=== PATIENT | female | born 1935 | race Caucasian/White ===

== ENCOUNTER 2017-04-03 17:22 | Outpatient (CLI) | payer BC, MEDICARE | END 2017-04-03 17:23 | disposition critical access hospital (66) | LOC: EMS 17:22 | PROVIDERS: ATTEND Surgery | DX: R53.1 Weakness (principal); R11.2 Nausea with vomiting, unspecified | CPT/HCPCS: A0425; A0427 ==

== ENCOUNTER 2017-04-03 17:37 | Inpatient (IN) | payer BC, MEDICARE ==
[2017-04-03] MEDS ORDERED: SODIUM CHLORIDE 0.9% 500 ML IV ONE (18:18)
[2017-04-03] MEDS ORDERED: SODIUM CHLORIDE 0.9% 1,000 ML IV ONE ×2 (18:22→19:38)
[2017-04-03 18:36] LABS: BASOPHILS % (AUTO) 0.3 %; EOSINOPHILS # (AUTO) 0.1 10^3/uL (0.0-0.7); EOSINOPHILS % (AUTO) 0.5 %; HCT - HEMATOCRIT 38.7 % (37.0-47.0); HGB - HEMOGLOBIN 13.2 g/dL (12.0-16.0); LYMPHOCYTES % (AUTO) 7.9 %; MEAN CORPUSCULAR HEMOGLOBIN 30.4 pg (27.0-31.0); MEAN CORPUSCULAR HGB CONC 34.1 g/dL (32.0-36.0); MEAN CORPUSCULAR VOLUME 89.2 fL (81.0-99.0); MEAN PLATELET VOLUME 7.9 fL (7.9-10.8); MONOCYTES # (AUTO) 0.9 10^3/uL (0.0-1.0); MONOCYTES % (AUTO) 7.8 %; NEUTROPHILS # (AUTO) 10.1 10^3/uL (1.5-6.6); NEUTROPHILS % (AUTO) 83.5 %; NUCLEATED RED BLOOD CELLS AUTO 0.1 /100WBC; RED BLOOD COUNT 4.34 10^6/uL (4.20-5.40); RED CELL DISTRIBUTION WIDTH 11.9 % (12.0-15.0); UNCORRECTED WHITE BLOOD COUNT 12.1 x10^3/uL; WHITE BLOOD COUNT 12.1 x10^3/uL (4.8-10.8)
[2017-04-03 18:56] LABS: ALBUMIN/GLOBULIN RATIO 1.2 (1.0-2.2); BILIRUBIN,TOTAL 0.9 mg/dL (0.2-1.0); CALCIUM 8.6 mg/dL (8.5-10.3); POTASSIUM 4.7 mmol/L (3.5-5.0); TOTAL PROTEIN 5.8 g/dL (6.7-8.2)
--- NOTE | 2017-04-03 19:07 | ED Physician Documentation ---
History of Present Illness - Stated complaint Stated Complaint: LETHARGIC - Chief complaint Chief Complaint: General - History obtained from History obtained from: Patient, Family (Daughter) - Additonal information Additional information: The patient is an 82-year-old female who arrives via ambulance complaining of generalized fatigue, and aching all over. She denies any specific complaints, but her daughter states that the patient has become increasingly lethargic over the past several days. She has a history of 60+ years of cigarette smoking and has a chronic cough with occasional sputum production. She denies chest pain, but does have occasional shortness of breath. She denies abdominal pain, but reports nausea with one episode of vomiting today. She denies dysuria. She denies history of similar symptoms in the past. She is visiting here from [place], having arrived 10 days ago. Review of Systems Constitutional: reports: Fatigue. denies: Fever Ears: denies: Tinnitus/ringing Nose: denies: Congestion Throat: denies: Sore throat Cardiac: denies: Chest pain / pressure, Palpitations Respiratory: reports: Dyspnea (Mild), Cough (Chronic smoker's cough.) GI: reports: Nausea, Vomiting (Once). denies: Abdominal Pain : denies: Dysuria Skin: denies: Rash Musculoskeletal: denies: Back pain, Extremity swelling Neurologic: reports: Generalized weakness. denies: Focal weakness, Numbness, Headache PD PAST MEDICAL HISTORY - Past Medical History Past Medical History: Yes Cardiovascular: Coronary artery disease Neuro: TIA - Past Surgical History Past Surgical History: Yes Cardiovascular: Coronary stent - Present Medications Home Medications: Ambulatory Orders Medication Instructions Recorded Confirmed Aspirin [Adult Low Dose Aspirin EC] 81 mg PO DAILY 04/03/17 04/03/17 Clopidogrel [Plavix] 75 mg PO DAILY 04/03/17 04/03/17 Hydrocodone/Acetaminophen [Vicodin 1 each PO Q6HR 04/03/17 04/03/17 5-300 mg Tablet] LORazepam [Ativan] 0.5 mg DAILY 04/03/17 04/03/17 Metoprolol Tartrate 25 mg PO BID 04/03/17 04/03/17 Ondansetron HCl [Zofran] 4 mg PO Q8HR 04/03/17 04/03/17 Pantoprazole [Protonix] 40 mg PO DAILY 04/03/17 04/03/17 Simvastatin 20 mg PO DAILY 04/03/17 04/03/17 Tiotropium Abiquiu [Spiriva] 18 mcg IH DAILY 04/03/17 04/03/17 Levothyroxine [Synthroid] 75 mcg PO QDAC 04/04/17 04/04/17 - Allergies Allergies/Adverse Reactions: Allergies Allergy/AdvReac Type Severity Reaction Status Date / Time Sulfa (Sulfonamide Allergy Unknown Verified 04/03/17 17:59 Antibiotics) - Social History Does the pt smoke?: Yes Smoking Status: Current every day smoker Does the pt drink ETOH?: No Does the pt have substance abuse?: No Additional Social History: Visiting from [place], staying with her daughter. PD ED PE NORMAL - Vitals Vital signs reviewed: Yes (Systolic hypertension.) - General General: Alert and oriented X 3, Well developed/nourished, Other (Appears fatigued, but responds to questions.) - HEENT HEENT: Atraumatic, PERRL, EOMI, Pharynx benign - Neck Neck: Supple, no meningeal sign, No adenopathy, No JVD - Cardiac Cardiac: RRR, No murmur - Respiratory Respiratory: No respiratory distress, Other (Faint expiratory wheezes bilaterally.) - Abdomen Abdomen: Soft, Non tender - Back Back: No CVA TTP - Derm Derm: No rash - Extremities Extremities: No edema, No calf tenderness / cord - Neuro Neuro: Alert and oriented X 3, No motor deficit, No sensory deficit, Other ( Generalized weakness, with no focal motor deficit detected.) Results - Vitals Vitals: Vital Signs - 24 hr 04/03/17 04/03/17 17:43 19:43 Temperature 36.7 C 36.7 C Heart Rate 84 93 Respiratory 18 14 Rate Blood Pressure 154/49 H O2 Saturation 94 99 Oxygen O2 Source Room air - EKG (time done) 18:51 Rate: Rate (enter#) (91) Rhythm: NSR, LAE QRS: Poor R wave progression Ischemia: Non specific changes Computer interpretation: Agree with computer - Labs Labs: Laboratory Tests 04/03/17 04/03/17 04/03/17 18:30 18:30 18:30 WBC 12.1 H RBC 4.34 Hgb 13.2 Hct 38.7 MCV 89.2 MCH 30.4 MCHC 34.1 RDW 11.9 L Plt Count 286 MPV 7.9 Neut # 10.1 H Lymph # 1.0 L [place] # 0.9 Eos # 0.1 Baso # 0.0 Absolute Nucleated RBC 0.01 Nucleated RBCs 0.1 Sodium 110 L* Potassium 4.7 Chloride 80 L* Carbon Dioxide 19 L Anion Gap 11.0 BUN 13 Creatinine 1.0 Estimated GFR (MDRD) 53 L Glucose 327 H Glycated Hemoglobin 10.5 H Estim Average Glucose 255 H Calcium 8.6 Total Bilirubin 0.9 AST 18 ALT 19 Alkaline Phosphatase 87 Total Protein 5.8 L Albumin 3.2 Globulin 2.6 Albumin/Globulin Ratio 1.2 Lipase 34 Urine Color Urine Clarity Urine pH Ur Specific Raymond Urine Protein Urine Glucose (UA) Urine Ketones Urine Occult Blood Urine Nitrite Urine Bilirubin Urine Urobilinogen Ur Leukocyte Esterase Urine RBC Urine WBC Ur Squamous Epith Cells Urine Bacteria Ur Microscopic Review Urine Culture Comments 04/03/17 04/03/17 19:50 20:30 WBC RBC Hgb Hct MCV MCH MCHC RDW Plt Count MPV Neut # Lymph # [place] # Eos # Baso # Absolute Nucleated RBC Nucleated RBCs Sodium 112 L* Potassium Chloride Carbon Dioxide Anion Gap BUN Creatinine Estimated GFR (MDRD) Glucose Glycated Hemoglobin Estim Average Glucose Calcium Total Bilirubin AST ALT Alkaline Phosphatase Total Protein Albumin Globulin Albumin/Globulin Ratio Lipase Urine Color YELLOW Urine Clarity HAZY Urine pH 6.0 Ur Specific Raymond 1.010 Urine Protein TRACE Urine Glucose (UA) >=1000 H Urine Ketones 15 H Urine Occult Blood LARGE H Urine Nitrite NEGATIVE Urine Bilirubin NEGATIVE Urine Urobilinogen 0.2 (NORMAL) Ur Leukocyte Esterase NEGATIVE Urine RBC 11-25 H Urine WBC >25 H Ur Squamous Epith Cells NONE SEEN Urine Bacteria Many H Ur Microscopic Review INDICATED Urine Culture Comments INDICATED - Rads (name of study) 2-view CXR Radiology: Prelim report reviewed, EMP read contemporaneously, See rad report ( COPD is evident. Bilateral central bronchial wall thickening could reflect bronchitis. No evidence for pneumonia. Normal heart size.) PD MEDICAL DECISION MAKING - ED course Complexity details: reviewed results, re-evaluated patient, considered differential, d/w patient, d/w family, d/w regional sales consultant ED course: The patient's presentation is significant for profound hyponatremia, with a sodium of 110. Her lethargy and confusion can well be attributed to this electrolyte abnormality. The underlying cause of her hyponatremia is uncertain. She does have a component of dehydration. Chest x-ray reveals evidence of COPD, with no acute pulmonary findings. Treatment in the emergency department included administration of normal saline 1 L IV. I discussed her condition with Dr. Narvaez who evaluated her in the emergency department and admitted her for further evaluation and treatment. Departure - Departure Disposition: [facility] DC/Xfer Clinical Impression: Hyponatremia, Dehydration Discharge Date/Time: 04/03/17 22:05
--- NOTE | 2017-04-03 19:54 | XRAY Preliminary Report ---
Exam: XR Chest 2 View PA/LAT IMPRESSION: 1. COPD is evident. 2. Bilateral central bronchial wall thickening could reflect bronchitis. 3. No evidence for pneumonia. 4. Normal heart size. [facility] SITE ID: [id number]
--- NOTE | 2017-04-03 19:56 | XRAY Report ---
EXAM: CHEST RADIOGRAPHY EXAM DATE: 04/03/2017 07:27 PM. CLINICAL HISTORY: Productive cough, dyspnea. COMPARISON: None. TECHNIQUE: 2 views. FINDINGS: Lungs/Pleura: Hyperlucent upper lungs compatible with COPD. Linear basilar opacities could reflect at electasis. No other focal airspace consolidation. Mild central bronchial wall thickening suggest bron chitis. No pleural effusion or pneumothorax. Mediastinum: Heart size is normal. Unremarkable mediastinal contour. Atheromatous calcification seen at the aortic arch. Other: Osteopenia is noted with kyphosis at the thoracolumbar junction, possibly from age-indetermina te compression fracture. IMPRESSION: 1. COPD is evident. 2. Bilateral central bronchial wall thickening could reflect bronchitis. 3. No evidence for pneumonia. 4. Normal heart size. [facility] Referring Provider Line: [phone] SITE ID: [id number]
[2017-04-03 20:23] LABS: BILIRUBIN,URINE NEGATIVE (NEGATIVE)
[2017-04-03] MEDS ORDERED: oxyCODONE 5 MG TABLET PO PRN (20:38)
[2017-04-03] MEDS ORDERED: ZOLPIDEM 5 MG TABLET PO PRN (20:38)
[2017-04-03] MEDS ORDERED: ONDANSETRON 4 MG/2 ML VIAL IVP PRN (20:38)
[2017-04-03] MEDS ORDERED: PROCHLORPERAZINE 10 MG/2 ML VIAL IVP PRN (20:38)
[2017-04-03] MEDS ORDERED: SODIUM CHLORIDE FLUSH 0.9% 10 ML SYRINGE IVP PRN (20:38)
[2017-04-03] MEDS ORDERED: ALBUTEROL NEB 2.5 MG/3 ML INH PRN (20:38)
[2017-04-03] MEDS ORDERED: ACETAMINOPHEN 325 MG TABLET PO PRN (20:38)
[2017-04-03 20:42] LABS: UA w/ MICROSCOPIC CHARGE YES
[2017-04-03] MEDS ORDERED: LORazepam 0.5 MG TABLET PO PRN (20:51)
[2017-04-03 20:59] LABS: WBC,URINE >25 /HPF (0-5)
[2017-04-03 21:00] LABS: UR CULTURE IF IND INDICATED
[2017-04-03] MEDS ORDERED: IOPAMIDOL-300 100 ML VIAL IVP ONE (21:46)
[2017-04-03 21:51] LABS: HEMOGLOBIN A1C 1.25 g/dL
[2017-04-03] MEDS ORDERED: SODIUM CHLORIDE FLUSH 0.9% 10 ML SYRINGE IVP ONE (22:21)
[2017-04-03] MEDS: SODIUM CHLORIDE FLUSH 0.9% 10 ML SYRINGE IVP SCH (22:23)
--- NOTE | 2017-04-03 22:53 | CT Preliminary Report ---
Exam: CT Chest W/ IMPRESSION: 1. Emphysema. 2. Nonspecific upper normal sized mediastinal lymph nodes measuring up to 1 cm. 3. Aortic ectasia and atherosclerosis. [facility] SITE ID: [id number]
[2017-04-03] MEDS: METOPROLOL TARTRATE 25 MG TABLET PO SCH (22:54)
[2017-04-03] MEDS: INSULIN ASPART 300 UNIT/3 ML PEN SUBQ SCH (22:54)
[2017-04-03] MEDS: cefTRIAXone 1 GM in SODIUM CHLORIDE 0.9% MINIBAG 100 ML IV SCH (22:55)
--- NOTE | 2017-04-03 22:55 | CT Report ---
EXAM: CT CHEST EXAM DATE: 04/03/2017 09:27 PM. CLINICAL HISTORY: Hyponatremia, weight loss, smoker. COMPARISONS: None. TECHNIQUE: Routine helical CT imaging was performed through the chest. IV contrast: Nonionic. Reconst ructions: Coronal and sagittal. In accordance with CT protocol optimization, one or more of the following dose reduction techniques w ere utilized for this exam: automated exposure control, adjustment of mA and/or KV based on patient s ize, or use of iterative reconstructive technique. FINDINGS: Lungs/Pleura: Emphysema. Mild bilateral atelectasis. No jaqui alveolar consolidation. No pleural effu miranda. No pneumothorax. Mediastinum: Heart size is normal. Coronary artery calcifications. Dilated ascending aorta measuring 3.7 cm. Moderate to severe atherosclerosis in the descending aorta. No aortic dissection. Nonspecific mediastinal lymph nodes measuring up to 17 m. Bones: Osteopenia. Degenerative changes in the spine. Mild scoliosis. Degenerative joint disease in t he shoulders. No aggressive lytic or blastic lesions identified. Visualized Abdomen: See separate abdomen and pelvis CT report. Other: None. IMPRESSION: 1. Emphysema. 2. Nonspecific upper normal sized mediastinal lymph nodes measuring up to 1 cm. 3. Aortic ectasia and atherosclerosis. [facility] Referring Provider Line: [phone] SITE ID: [id number]
[2017-04-03] MEDS: NICOTINE 21 MG PATCH TOP SCH (23:02)
--- NOTE | 2017-04-03 23:23 | CT Preliminary Report ---
Exam: CT Abdomen/Pelvis W/O IMPRESSION: 1. Solitary right kidney. 2. Colonic diverticula without evidence of diverticulitis. 3. Equivocal for mild wall thickening in the left hemicolon. This may simple represent nondistention. Low-grade colitis also possible. 4. Severe aortic atherosclerosis with infrarenal aneurysm measuring 3.8 x 3.6 cm. [facility] SITE ID: [id number]
--- NOTE | 2017-04-03 23:25 | CT Report ---
EXAM: CT ABDOMEN AND PELVIS EXAM DATE: 04/03/2017 09:51 PM. CLINICAL HISTORY: Hyponatremia and weight loss. Abdominal aortic abnormality noted on chest CT. COMPARISONS: CT chest, 04/03/2017. TECHNIQUE: Routine helical CT imaging was performed through the abdomen and pelvis. IV contrast: None . Enteric contrast: No. Reconstructions: Coronal and sagittal. In accordance with CT protocol optimization, one or more of the following dose reduction techniques w ere utilized for this exam: automated exposure control, adjustment of mA and/or KV based on patient s ize, or use of iterative reconstructive technique. FINDINGS: Lung Bases: Mild bibasilar atelectasis. Coronary artery calcifications. Liver: No focal lesion identified on this noncontrast examination. Gallbladder/Bile Ducts: Unremarkable. Spleen: Normal. Pancreas: Normal. Adrenal Glands: Normal. Kidneys: Excreted contrast in the right kidney from prior chest CT. 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 Peritoneal Cavity/Bowel: Colonic diverticula without evidence of diverticulitis. Equivocal for mild w all thickening in the left hemicolon. No bowel obstruction seen. No free air or free fluid. No lympha denopathy. Appendix is not seen. No evidence of appendicitis. Pelvic Organs: Uterus is not seen. Visualized pelvic organs are otherwise unremarkable. Vasculature: Tortuous severely atherosclerotic aorta. Infrarenal abdominal aortic aneurysm measuring 3.8 x 3.6 cm. Bones: Osteopenia. Degenerative changes and scoliosis in the spine. Spinal stenosis. Other: None. IMPRESSION: 1. Solitary right kidney. 2. Colonic diverticula without evidence of diverticulitis. 3. Equivocal for mild wall thickening in the left hemicolon. This may simple represent nondistention. Low-grade colitis also possible. 4. Severe aortic atherosclerosis with infrarenal aneurysm measuring 3.8 x 3.6 cm. [facility] Referring Provider Line: [phone] SITE ID: [id number]
--- NOTE | 2017-04-04 00:32 | HISTORY & PHYSICAL EXAMINATION ---
Chief Complaint - Chief Complaint Chief Complaint: Lethargy History of Present Illness - Admitted From Admitted From:: Emergency Department - History Obtained From Records Reviewed: Yes History obtained from: Patient and her daughter Exam Limitations: None - History of Present Illness HPI Comment/Other: Patient is an 82 year old female from [place], [place] who is here visiting her daughter with a past medical history of COPD, atrial fibrillation, CAD s/p stent , gastrointestinal stromal sarcoma of the stomach, hyperlipidemia, hypothyroidism, renal cell carcinoma s/p left nephrectomy, obesity, osteoarthritis, pre-diabetes, TIA, tobacco abuse and history of carotid thromboendarterectomy who presented to the emergency department with lethargy. According to the patients daughter the patient has been here on [facility] for 10 days now and prior to coming she was stressed out about coming but was otherwise in her normal state of health. She states that her mom says she may have been dehydrated before she came but did not complain of any diarrhea, vomiting or nausea. She stated her mom had a pneumonia earlier in the year but had been treated and was over it. She also stated that her mom gets recurrent urinary tract infections. Since coming to stay with her daughter the patients has been quite active as she was moving around the house with her walker. The daughter states that over the last 4 days however her mom has been less active. She states she complained of feeling fatigued and was spending most of her time in bed and would only get out of bed to have a cigarette. She seemed to be very weak. The patients daughter thought her mom was dehydrated and tried to get her to drink more water but the patient has had no appetite for the last several days and has been eating or drinking very little. She has not had any diarrhea nor has she vomited. The patient did tell her daughter that she felt as though she maybe getting another UTI. The daughter thought her mom would get better just with rest however today she states her mom was increasingly lethargic and confused. She states it was hard to arouse her and hard to get her to answer questions so she finally decided she needed to bring her into the ER. The patient did answer questions for the ER physician but was not able to give me much history as she was too lethargic. The history was mostly provided by the daughter. On presentation to the ER the patient was lethargic. Her vital signs were within normal limits. She did appear to be very dry. She did initially wake up to answer questions and did get up with the help of nurses to go to the bathroom. The patient however became more lethargic and less responsive when she was seen by me. The patients labs revealed that the patient had a sodium of 110 on presentation with a glucose of 327 therefore the corrected Na was closer to 115. She had a mild leukocytosis and her urine was positive for a UTI. She was given nearly 2L of IVF in the emergency department with Normal saline and her repeat Na was up to 112. I spoke with an life management teacher out of [facility] by the name of Dr Diaz who did not believe that she needed to be transferred even with such a low Na. She recommended starting the patient on normal saline at 75 ml/hr and her sodium would slowly correct at this rate. She said there was no need to place her on hypertonic slaine or desmopressin. The patient was admitted to our ICU. Review of Systems - Constitutional Constitutional: reports: Fatigue, Malaise, Weakness, Poor appetite. denies: Fever, Chills, Diaphoresis, Night sweats, Weight gain, Weight loss - Eyes Eyes: denies: Pain, Blurred vision, Vision loss, Dipolpia - Ears, Nose & Throat Ears, Nose & Throat: denies: Ear pain, Hearing loss, Hearing aids, Tinnitus, Vertigo, Nasal congestion, Sore throat, Hoarseness - Cardiovascular Cariovascular: reports: Irregular heart rate. denies: Palpitations, Chest pain , Edema, Lightheadedness, Syncope, Exertional dyspnea, Decr. exercise tolerance , Orthopnea - Respiratory Respiratory: denies: Cough, Sputum production, Wheezing, Orthopnea, SOB at rest , SOB with exertion, Apnea, Pleuritic pain - Gastrointestinal Gastrointestinal: reports: Poor appetite. denies: Abdominal pain, Abdominal distention, Constipation, Diarrhea, Change in bowel habits, Black stools, Bloody stools, Nausea, Vomiting, Reflux/heartburn, Bloating - Genitourinary Genitourinary: reports: Frequency. denies: Dysuria, Flank pain - Musculoskeletal Musculoskeletal: denies: Muscle pain, Back pain, Muscle aches, Stiffness, Limited range of motion, Muscle weakness, Joint pain, Joint swelling - Integumentary Integumentary: reports: Dryness. denies: Rash, Lesions - Neurological Neurological: reports: General weakness, Abnormal gait, Incoordination. denies : Focal weakness, Headache, Dizziness, Numbness - Psychiatric Psychiatric: reports: Other (Stressed). denies: Depression, Anxiety - Endocrine Endocrine: reports: Polyuria, Intolerance to cold. denies: Polydypsia, Polyphagia, Intolerance to heat - Hematologic/Lymphatic Hematologic/Lymphatic: denies: Anemia, Bruising, Petechiae, Lymphadenopathy History - Past Medical History Cardiovascular: reports: Hypertension, High cholesterol, Coronary artery disease (s/p stent), Atrial fibrillation, Other (Obesity) Respiratory: reports: COPD Neuro: reports: TIA Endocrine/Autoimmune: reports: Type 2 diabetes, HyPOthyroidism GI: reports: Chronic constipation, Diverticulitis, Other (Gastrointestinal Stromal Sarcoma of stomach) : reports: Incontinence, Other (Renal Cell Carcinoma s/p left nephrectomy ) HEENT: reports: None Psych: reports: None Musculoskeletal: reports: Osteoarthritis, Scoliosis Derm: reports: Other Other Past Medical History: 2 moles recently removed on her upper back by freezing them - Past Surgical History /SCAFFOLDER: reports: Other (Left nephrectomy ) Cardiovascular: reports: Coronary stent - Family & Social History Family History: Mother: (Dad of liver infection), Cancer (Brain Tumor), Father: , Sister: Diabetes, Type 2 Living arrangement: At home Living Situation: With family (Lives with daughter in [facility]) Social History Notes: Visiting from [place], staying with her daughter. Lives with her other daughter in [place], [place]. She uses a walker. Smoke 1.5 PPD since she was a teen so over 60 years. Does not drink or use any illicit drugs. - Substance History Use: Uses substance without health or social issues: Tobacco Tobacco Details: Cigarettes - POLST Patient has POLST: No POLST Status: Full Code Meds/Allgy - Home Medications Home Medications: Ambulatory Orders Medication Instructions Recorded Confirmed Aspirin [Adult Low Dose Aspirin EC] 81 mg PO DAILY 04/03/17 04/03/17 Clopidogrel [Plavix] 75 mg PO DAILY 04/03/17 04/03/17 Hydrocodone/Acetaminophen [Vicodin 1 each PO Q6HR 04/03/17 04/03/17 5-300 mg Tablet] LORazepam [Ativan] 0.5 mg DAILY 04/03/17 04/03/17 Metoprolol Tartrate 25 mg PO BID 04/03/17 04/03/17 Ondansetron HCl [Zofran] 4 mg PO Q8HR 04/03/17 04/03/17 Pantoprazole [Protonix] 40 mg PO DAILY 04/03/17 04/03/17 Simvastatin 20 mg PO DAILY 04/03/17 04/03/17 Tiotropium [place] [Spiriva] 18 mcg IH DAILY 04/03/17 04/03/17 Levothyroxine [Synthroid] 75 mcg PO QDAC 04/04/17 04/04/17 - Allergies Allergies/Adverse Reactions: Allergies Allergy/AdvReac Type Severity Reaction Status Date / Time Sulfa (Sulfonamide Allergy Unknown Verified 04/03/17 17:59 Antibiotics) Exam - Vital Signs Reviewed Vital Signs: Yes Vital Signs: Vital Signs x48h Temp Pulse Pulse Resp BP BP Pulse Ox 04/03/17 23:13 36.9 C 94 94 14 118/52 L 98 04/03/17 22:54 148/51 H 04/03/17 22:14 36.4 C L 101 H 26 H 151/53 H 96 04/03/17 21:56 36.4 C L 103 H 25 H 151/53 H 99 04/03/17 21:41 95 19 135/57 H 96 - Physical Exam General Appearance: positive: Lethargic (Difficult to arouse. Patient does not answer my questions but was following commands and responding earlier.) Eyes Bilateral: positive: Normal inspection, PERRL, EOMI, No lid inflammation, Conjunctivae nml, No scleral icterus ENT: positive: ENT inspection nml, Pharynx nml, Dry mucous membranes. negative : Purulent nasal drainage, Pharyngeal erythema, Oral lesions Neck: positive: Nml inspection, Thyroid nml, No JVD, Trachea midline. negative : Thyromegaly, Lymphadenopathy (R), Lymphadenopathy (L), Carotid bruit, Tracheal deviation Respiratory: positive: Chest non-tender, No respiratory distress, Wheezes (Mild scattered). negative: Rales, Rhonchi Cardiovascular: positive: No murmur, No gallop, Irregularly irregular Peripheral Pulses: positive: 2+ Abdomen: positive: Non-tender, No organomegaly, Nml bowel sounds, No distention. negative: Guarding, Rebound, Hepatomegaly Back: positive: Nml inspection. negative: CVA tenderness (R), CVA tenderness (L ) Skin: positive: No rash, Dry. negative: Cyanosis, Pallor Extremities: positive: Non-tender, Full ROM, Nml appearance, No pedal edema. negative: Joint swelling Neurologic/Psychiatric: positive: CN's nml (2-12), Motor nml, Sensation nml, Other (Ataxia, lethargic) Conclusion/Plan - Problem List (1) Hyponatremia Conclusion/Plan: Patient appears hypovolemic on presentation therefore this is likely hypovolemic hyponatremia Patients Gluc was elevated to over 300 on presentation therefore corrected Na is 114.8 Patient not having any diarrhea or vomiting No evidence of acute pulmonary process on CXR or CT chest but does show COPD which can lead to SIADH Patients Conchis is 20 and FeNa is less than 1 this does not go with either renal or extra renal losses Patient is not on any diuretics She does have hypothyroidism on synthroid Patient lethargic on presentation with ataxia Patient not on any medications that would cause hyponatremia Given that the patients symptoms have come on so gradually and are not severe despite such low levels of Na leads me to believe this is chronic hyponatremia Plan: Correct at slow rate of no more than 8-10 mmol/l per 24 hours as this appears to be chronic Per recommendations of Dr. Diaz (ICU) at [facility] in [place] we will place patient on 75 ml/hr of NS. Patient did receive nearly 2L of saline in the ED Check TSH Check AM Cortisol Monitor Na q [address] head to look for tumor if no other source found Free water restriction of 800ml (2) UTI (urinary tract infection) Conclusion/Plan: Patient has history of recurrent UTIs Appears to have new onset diabetes as she previously had pre-diabetes but A1C is now 10.5 which puts her at risk for UTI UA with greater than 25 WBCs and may bacteria, leukocytosis and patient told daughter she felt as though she might have a UTI Plan: IV ceftriaxone Awaiting urine cx Qualifiers: Urinary tract infection type: acute cystitis (3) Diabetes Conclusion/Plan: Previously patient was told she has pre-diabetes Patients BG elevated at over 300 on presentation Patient has HbA1C of 10.5 Patient has new diagnosis of diabetes This may have been contributing to dehydration secondary to polyuria and hyperglycemia Plan: Start lantus 10 units subQ daily and SS insulin DM diet DM teaching Monitor BG while hospitalized Qualifiers: Diabetes mellitus type: type 2 (4) Hypothyroidism Conclusion/Plan: Patient on synthroid at home Presented with hyponatremia which can be caused by hypothroidism Plan: Check TSH Continue synthorid home dose and adjust if needed (5) Aortic aneurysm Conclusion/Plan: Infra-renal aortic aneurysm measuring 3.8 x 3.6 cm Not ruptured Patient is a smoker Will need to be counselled on need to quit smoking Plan: Needs to follow up as outpatient for annual ultrasound to monitor size Qualifiers: Aortic location: abdominal aorta Presence of rupture: without rupture Qualified Code(s): I71.4 - Abdominal aortic aneurysm, without rupture (6) COPD (chronic obstructive pulmonary disease) Conclusion/Plan: Patient has COPD from years of smoking COPD can cause SIADH and hyponatremia but patient appears hypovolemic Stable no O2 requirement with minimal wheezing Plan: Supplemental O2 if needed Albuterol and ipratropium as needed Qualifiers: COPD type: emphysema (7) Hypertension Conclusion/Plan: BP is stable Continue home meds Monitor (8) Hyperlipidemia Conclusion/Plan: Stable Continue home statin (9) Tobacco abuse Conclusion/Plan: Patient continues to smoke 1.5 PPD despite CAD, TIA and atherosclerosis She now also has an aortic aneurysm Patient will be counselled on need to quit once more alert and awake Nicotine patch for now (10) Prophylactic use of low molecular weight heparin for venous thromboembolism Conclusion/Plan: Place on lovenox while hospitalized - Lab Results Lab results reviewed: Yes Fish Bones: 04/03/17 18:30 04/03/17 20:30 Other Lab Results: Laboratory Results WBC 12.1 x10^3/uL (4.8-10.8) H 04/03/17 18:30 RBC 4.34 10^6/uL (4.20-5.40) 04/03/17 18:30 Hgb 13.2 g/dL (12.0-16.0) 04/03/17 18:30 Hct 38.7 % (37.0-47.0) 04/03/17 18:30 MCV 89.2 fL (81.0-99.0) 04/03/17 18:30 MCH 30.4 pg (27.0-31.0) 04/03/17 18:30 MCHC 34.1 g/dL (32.0-36.0) 04/03/17 18:30 RDW 11.9 % (12.0-15.0) L 04/03/17 18:30 Plt Count 286 10^3/uL (130-450) 04/03/17 18:30 MPV 7.9 fL (7.9-10.8) 04/03/17 18:30 Neut # 10.1 10^3/uL (1.5-6.6) H 04/03/17 18:30 Lymph # 1.0 10^3/uL (1.5-3.5) L 04/03/17 18:30 Clay # 0.9 10^3/uL (0.0-1.0) 04/03/17 18:30 Eos # 0.1 10^3/uL (0.0-0.7) 04/03/17 18:30 Baso # 0.0 10^3/uL (0.0-0.1) 04/03/17 18:30 Absolute Nucleated RBC 0.01 x10^3/uL 04/03/17 18:30 Nucleated RBCs 0.1 /100WBC 04/03/17 18:30 Sodium 116 mmol/L (135-145) L* 04/04/17 01:00 Potassium 4.3 mmol/L (3.5-5.0) 04/04/17 01:00 Chloride 88 mmol/L (101-111) L 04/04/17 01:00 Carbon Dioxide 19 mmol/L (21-32) L 04/04/17 01:00 Anion Gap 9.0 (6-13) 04/04/17 01:00 BUN 12 mg/dL (6-20) 04/04/17 01:00 Creatinine 1.0 mg/dL (0.4-1.0) 04/04/17 01:00 Estimated GFR (MDRD) 53 (>89) L 04/04/17 01:00 Glucose 252 mg/dL (70-100) H 04/04/17 01:00 POC Whole Bld Glucose 309 mg/dL (70 - 100) H 04/03/17 22:23 Glycated Hemoglobin 10.5 % (4.6-6.2) H 04/03/17 18:30 Estim Average Glucose 255 (70-100) H 04/03/17 18:30 Calcium 8.1 mg/dL (8.5-10.3) L 04/04/17 01:00 Total Bilirubin 0.9 mg/dL (0.2-1.0) 04/03/17 18:30 AST 18 IU/L (10-42) 04/03/17 18:30 ALT 19 IU/L (10-60) 04/03/17 18:30 Alkaline Phosphatase 87 IU/L (42-121) 04/03/17 18:30 Total Protein 5.8 g/dL (6.7-8.2) L 04/03/17 18:30 Albumin 3.2 g/dL (3.2-5.5) 04/03/17 18:30 Globulin 2.6 g/dL (2.1-4.2) 04/03/17 18:30 Albumin/Globulin Ratio 1.2 (1.0-2.2) 04/03/17 18:30 Lipase 34 U/L (22-51) 04/03/17 18:30 Urine Color YELLOW 04/03/17 19:50 Urine Clarity HAZY (CLEAR) 04/03/17 19:50 Urine pH 6.0 PH (5.0-7.5) 04/03/17 19:50 Ur Specific [place] 1.010 (1.002-1.030) 04/03/17 19:50 Urine Protein TRACE mg/dL (NEGATIVE) 04/03/17 19:50 Urine Glucose (UA) >=1000 mg/dL (NEGATIVE) H 04/03/17 19:50 Urine Ketones 15 mg/dL (NEGATIVE) H 04/03/17 19:50 Urine Occult Blood LARGE (NEGATIVE) H 04/03/17 19:50 Urine Nitrite NEGATIVE (NEGATIVE) 04/03/17 19:50 Urine Bilirubin NEGATIVE (NEGATIVE) 04/03/17 19:50 Urine Urobilinogen 0.2 (NORMAL) E.U./dL (NORMAL) 04/03/17 19:50 Ur Leukocyte Esterase NEGATIVE (NEGATIVE) 04/03/17 19:50 Urine RBC 11-25 /HPF (0-5) H 04/03/17 19:50 Urine WBC >25 /HPF (0-5) H 04/03/17 19:50 Ur Squamous Epith Cells NONE SEEN (<= Few) 04/03/17 19:50 Urine Bacteria Many /HPF (None Seen) H 04/03/17 19:50 Ur Microscopic Review INDICATED 04/03/17 19:50 Urine Culture Comments INDICATED 04/03/17 19:50 Urine Creatinine 22.6 mg/dL 04/03/17 23:44 Urine Sodium 20.0 mmol/L 04/03/17 23:44 - Diagnostic Imaging Results Diagnostic Imaging Results: positive: Final report reviewed Diagnostic Imaging Results Comments: Chest X ray: 1. COPD evident 2. Bilateral central bronchial jwall thickening could reflect bronchitis 3. No evidence for pneumonia 4. Normal heart size CT chest: Emphysema Nonspecific upper normal sized mediastinal lymph nodes measuring up to 1 cm Aortic ectasia and atherosclerosis CT abd/pelvis: Solitary right kidney Colonic diverticula without evidence of diverticulitis Equivocal for mild wall thickening in the left hemicolon. This may simply represent nondistention low-grade colitis also possible. Severe aortic atherosclerosis with infrarenal aneurysm measuring 3.8 x 3.6 cm - EKG Results EKG Interpreted Independently: Yes EKG Findings: Arrhythmia Issues/Core Measures - Anticipated LOS Anticipated Stay Length: 2 or more midnights - DVT/VTE - Prophylaxis VTE/DVT Prophylaxis med ordered at admit?: Yes
[2017-04-04] MEDS: SODIUM CHLORIDE 0.9% 1,000 ML IV SCH ×3 (00:54→21:27)
[2017-04-04] MEDS: PHENAZOPYRIDINE 100 MG TABLET PO SCH ×4 (00:59→21:28)
[2017-04-04 01:20] LABS: CALCIUM 8.1 mg/dL (8.5-10.3); POTASSIUM 4.3 mmol/L (3.5-5.0)
[2017-04-04 05:53] LABS: BASOPHILS % (AUTO) 0.2 %; EOSINOPHILS # (AUTO) 0.1 10^3/uL (0.0-0.7); EOSINOPHILS % (AUTO) 0.5 %; HCT - HEMATOCRIT 35.1 % (37.0-47.0); HGB - HEMOGLOBIN 12.1 g/dL (12.0-16.0); LYMPHOCYTES # (AUTO) 1.9 10^3/uL (1.5-3.5); LYMPHOCYTES % (AUTO) 14.1 %; MEAN CORPUSCULAR HEMOGLOBIN 30.5 pg (27.0-31.0); MEAN CORPUSCULAR HGB CONC 34.4 g/dL (32.0-36.0); MEAN CORPUSCULAR VOLUME 88.7 fL (81.0-99.0); MEAN PLATELET VOLUME 7.6 fL (7.9-10.8); MONOCYTES # (AUTO) 0.9 10^3/uL (0.0-1.0); MONOCYTES % (AUTO) 7.1 %; NEUTROPHILS # (AUTO) 10.4 10^3/uL (1.5-6.6); NEUTROPHILS % (AUTO) 78.1 %; RED BLOOD COUNT 3.95 10^6/uL (4.20-5.40); UNCORRECTED WHITE BLOOD COUNT 13.3 x10^3/uL; WHITE BLOOD COUNT 13.3 x10^3/uL (4.8-10.8)
[2017-04-04] MEDS: SODIUM CHLORIDE FLUSH 0.9% 10 ML SYRINGE IVP SCH ×3 (05:57→21:29)
[2017-04-04 06:08] LABS: CALCIUM 7.9 mg/dL (8.5-10.3); CREATININE 0.9 mg/dL (0.4-1.0); PHOSPHORUS 3.5 mg/dL (2.5-4.6); POTASSIUM 4.3 mmol/L (3.5-5.0)
[2017-04-04] MEDS: LEVOTHYROXINE 75 MCG TABLET PO SCH (06:40)
[2017-04-04] MEDS: PANTOPRAZOLE 40 MG TABLET PO SCH (06:40)
[2017-04-04] MEDS: IPRATROPIUM 0.2 MG/ML NEB INH PRN ×2 (08:14→14:19)
[2017-04-04] MEDS: INSULIN ASPART 300 UNIT/3 ML PEN SUBQ SCH (08:27)
[2017-04-04] MEDS: ASPIRIN EC 81 MG TABLET PO SCH (08:27)
[2017-04-04] MEDS: CLOPIDOGREL 75 MG TABLET PO SCH (08:27)
[2017-04-04] MEDS: ENOXAPARIN 40 MG/0.4 ML SYRINGE SUBQ SCH (08:27)
[2017-04-04] MEDS: METOPROLOL TARTRATE 25 MG TABLET PO SCH ×2 (08:28→21:28)
[2017-04-04] MEDS: NICOTINE 21 MG PATCH TOP SCH (08:28)
[2017-04-04] MEDS ORDERED: NON FORMULARY MED (Simvastatin [Simvastatin] 20 MG) PO SCH (09:00)
[2017-04-04] MEDS ORDERED: INSULIN GLARGINE 300 UNIT/3 ML PEN SUBQ SCH (09:00)
[2017-04-04 09:31] LABS: CALCIUM 8.2 mg/dL (8.5-10.3); CREATININE 0.9 mg/dL (0.4-1.0); POTASSIUM 4.7 mmol/L (3.5-5.0)
[2017-04-04 09:44] LABS: CHOL/HDL RATIO 2.3 (<4.4); CHOLESTEROL 108 mg/dL; HDL CHOLESTEROL 47 mg/dL; LDL/HDL RATIO 0.9 (<4.4); TRIGLYCERIDES 84 mg/dL; VLDL CHOLESTEROL 17 mg/dL
[2017-04-04 09:49] LABS: SODIUM, URINE < 12.0 mmol/L
--- NOTE | 2017-04-04 11:20 | PROVIDER PROGRESS NOTE ---
Subjective - Subjective Pt reports feeling: Improved (Pt is less fatigued, eating and drinking without complaints. Daughter at bedside and confirms this. Pt admits to drinking "free water all the time and alot because she lives in [place]".) Objective - Vital Signs/Intake & Output Vital Signs: Vital Signs x48h Temp Pulse Pulse Resp BP BP Pulse Ox 04/04/17 11:00 82 20 117/51 L 96 04/04/17 09:56 81 24 128/56 L 98 04/04/17 08:47 92 17 128/50 L 92 04/04/17 08:28 122/49 L 04/04/17 08:15 98 26 H 04/04/17 07:51 37.0 C 92 19 135/67 H 97 04/04/17 06:00 90 15 115/41 L 94 04/04/17 05:00 88 23 128/45 L 95 04/04/17 04:37 37.3 C 93 17 97 04/04/17 04:00 88 15 115/36 L 95 Intake & Output: Intake & Output 04/01/17 04/02/17 04/03/17 04/04/17 23:59 23:59 23:59 23:59 Intake Total 0 1629 Output Total 1300 1065 Balance -1300 564 - Objective General Appearance: positive: No acute distress Respiratory: positive: No respiratory distress Cardiovascular: positive: Regular rate & rhythm Rectal: positive: Non-tender Skin: positive: Color nml, Warm, Dry Neurologic/Psychiatric: positive: Oriented x3 - Lab Results Fish Bones: 04/04/17 05:42 04/04/17 08:30 Other Labs: Lab Results x24hrs 04/04/17 04/04/17 04/04/17 Range/Units 09:17 08:30 08:30 WBC (4.8-10.8) x10^3/uL RBC (4.20-5.40) 10^6/uL Hgb (12.0-16.0) g/dL Hct (37.0-47.0) % MCV (81.0-99.0) fL MCH (27.0-31.0) pg MCHC (32.0-36.0) g/dL RDW (12.0-15.0) % Plt Count (130-450) 10^3/uL MPV (7.9-10.8) fL Neut # (1.5-6.6) 10^3/uL Lymph # (1.5-3.5) 10^3/uL [place] # (0.0-1.0) 10^3/uL Eos # (0.0-0.7) 10^3/uL Baso # (0.0-0.1) 10^3/uL Absolute Nucleated RBC x10^3/uL Nucleated RBCs /100WBC Sodium (135-145) mmol/L Potassium (3.5-5.0) mmol/L Chloride (101-111) mmol/L Carbon Dioxide (21-32) mmol/L Anion Gap (6-13) BUN (6-20) mg/dL Creatinine (0.4-1.0) mg/dL Estimated GFR (MDRD) (>89) Glucose (70-100) mg/dL POC Whole Bld Glucose (70 - 100) mg/dL Lactic Acid (0.5-2.2) mmol/L Calcium (8.5-10.3) mg/dL Phosphorus (2.5-4.6) mg/dL Magnesium (1.7-2.8) mg/dL Albumin (3.2-5.5) g/dL Triglycerides 84 ( - 149) mg/dL Cholesterol 108 ( - 199) mg/dL LDL Cholesterol, Calc 44 ( - 129) mg/dL VLDL Cholesterol 17 mg/dL HDL Cholesterol 47 L (60 - ) mg/dL LDL/HDL Ratio 0.9 (<4.4) Cholesterol/HDL Ratio 2.3 (<4.4) TSH (0.34-5.60) uIU/mL Cortisol PM Sample 26.4 ug/dL Urine Creatinine 105.2 mg/dL Urine Sodium < 12.0 mmol/L 04/04/17 04/04/17 04/04/17 Range/Units 08:30 07:52 05:42 WBC (4.8-10.8) x10^3/uL RBC (4.20-5.40) 10^6/uL Hgb (12.0-16.0) g/dL Hct (37.0-47.0) % MCV (81.0-99.0) fL MCH (27.0-31.0) pg MCHC (32.0-36.0) g/dL RDW (12.0-15.0) % Plt Count (130-450) 10^3/uL MPV (7.9-10.8) fL Neut # (1.5-6.6) 10^3/uL Lymph # (1.5-3.5) 10^3/uL [place] # (0.0-1.0) 10^3/uL Eos # (0.0-0.7) 10^3/uL Baso # (0.0-0.1) 10^3/uL Absolute Nucleated RBC x10^3/uL Nucleated RBCs /100WBC Sodium 116 L* (135-145) mmol/L Potassium 4.7 (3.5-5.0) mmol/L Chloride 89 L (101-111) mmol/L Carbon Dioxide 18 L (21-32) mmol/L Anion Gap 9.0 (6-13) BUN 11 (6-20) mg/dL Creatinine 0.9 (0.4-1.0) mg/dL Estimated GFR (MDRD) 60 L (>89) Glucose 238 H (70-100) mg/dL POC Whole Bld Glucose 232 H (70 - 100) mg/dL Lactic Acid (0.5-2.2) mmol/L Calcium 8.2 L (8.5-10.3) mg/dL Phosphorus (2.5-4.6) mg/dL Magnesium (1.7-2.8) mg/dL Albumin 2.9 L (3.2-5.5) g/dL Triglycerides ( - 149) mg/dL Cholesterol ( - 199) mg/dL LDL Cholesterol, Calc ( - 129) mg/dL VLDL Cholesterol mg/dL HDL Cholesterol (60 - ) mg/dL LDL/HDL Ratio (<4.4) Cholesterol/HDL Ratio (<4.4) TSH (0.34-5.60) uIU/mL Cortisol PM Sample ug/dL Urine Creatinine mg/dL Urine Sodium mmol/L 04/04/17 04/04/17 04/04/17 Range/Units 05:42 05:42 05:42 WBC (4.8-10.8) x10^3/uL RBC (4.20-5.40) 10^6/uL Hgb (12.0-16.0) g/dL Hct (37.0-47.0) % MCV (81.0-99.0) fL MCH (27.0-31.0) pg MCHC (32.0-36.0) g/dL RDW (12.0-15.0) % Plt Count (130-450) 10^3/uL MPV (7.9-10.8) fL Neut # (1.5-6.6) 10^3/uL Lymph # (1.5-3.5) 10^3/uL [place] # (0.0-1.0) 10^3/uL Eos # (0.0-0.7) 10^3/uL Baso # (0.0-0.1) 10^3/uL Absolute Nucleated RBC x10^3/uL Nucleated RBCs /100WBC Sodium 117 L* (135-145) mmol/L Potassium 4.3 (3.5-5.0) mmol/L Chloride 90 L (101-111) mmol/L Carbon Dioxide 19 L (21-32) mmol/L Anion Gap 8.0 (6-13) BUN 11 (6-20) mg/dL Creatinine 0.9 (0.4-1.0) mg/dL Estimated GFR (MDRD) 60 L (>89) Glucose 231 H (70-100) mg/dL POC Whole Bld Glucose (70 - 100) mg/dL Lactic Acid 0.7 (0.5-2.2) mmol/L Calcium 7.9 L (8.5-10.3) mg/dL Phosphorus 3.5 (2.5-4.6) mg/dL Magnesium 2.0 (1.7-2.8) mg/dL Albumin (3.2-5.5) g/dL Triglycerides ( - 149) mg/dL Cholesterol ( - 199) mg/dL LDL Cholesterol, Calc ( - 129) mg/dL VLDL Cholesterol mg/dL HDL Cholesterol (60 - ) mg/dL LDL/HDL Ratio (<4.4) Cholesterol/HDL Ratio (<4.4) TSH 1.02 (0.34-5.60) uIU/mL Cortisol PM Sample ug/dL Urine Creatinine mg/dL Urine Sodium mmol/L 04/04/17 04/04/17 04/03/17 Range/Units 05:42 01:00 23:44 WBC 13.3 H (4.8-10.8) x10^3/uL RBC 3.95 L (4.20-5.40) 10^6/uL Hgb 12.1 (12.0-16.0) g/dL Hct 35.1 L (37.0-47.0) % MCV 88.7 (81.0-99.0) fL MCH 30.5 (27.0-31.0) pg MCHC 34.4 (32.0-36.0) g/dL RDW 12.0 (12.0-15.0) % Plt Count 261 (130-450) 10^3/uL MPV 7.6 L (7.9-10.8) fL Neut # 10.4 H (1.5-6.6) 10^3/uL Lymph # 1.9 (1.5-3.5) 10^3/uL [place] # 0.9 (0.0-1.0) 10^3/uL Eos # 0.1 (0.0-0.7) 10^3/uL Baso # 0.0 (0.0-0.1) 10^3/uL Absolute Nucleated RBC 0.00 x10^3/uL Nucleated RBCs 0.0 /100WBC Sodium 116 L* (135-145) mmol/L Potassium 4.3 (3.5-5.0) mmol/L Chloride 88 L (101-111) mmol/L Carbon Dioxide 19 L (21-32) mmol/L Anion Gap 9.0 (6-13) BUN 12 (6-20) mg/dL Creatinine 1.0 (0.4-1.0) mg/dL Estimated GFR (MDRD) 53 L (>89) Glucose 252 H (70-100) mg/dL POC Whole Bld Glucose (70 - 100) mg/dL Lactic Acid (0.5-2.2) mmol/L Calcium 8.1 L (8.5-10.3) mg/dL Phosphorus (2.5-4.6) mg/dL Magnesium (1.7-2.8) mg/dL Albumin (3.2-5.5) g/dL Triglycerides ( - 149) mg/dL Cholesterol ( - 199) mg/dL LDL Cholesterol, Calc ( - 129) mg/dL VLDL Cholesterol mg/dL HDL Cholesterol (60 - ) mg/dL LDL/HDL Ratio (<4.4) Cholesterol/HDL Ratio (<4.4) TSH (0.34-5.60) uIU/mL Cortisol PM Sample ug/dL Urine Creatinine 22.6 mg/dL Urine Sodium 20.0 mmol/L 04/03/17 Range/Units 22:23 WBC (4.8-10.8) x10^3/uL RBC (4.20-5.40) 10^6/uL Hgb (12.0-16.0) g/dL Hct (37.0-47.0) % MCV (81.0-99.0) fL MCH (27.0-31.0) pg MCHC (32.0-36.0) g/dL RDW (12.0-15.0) % Plt Count (130-450) 10^3/uL MPV (7.9-10.8) fL Neut # (1.5-6.6) 10^3/uL Lymph # (1.5-3.5) 10^3/uL [place] # (0.0-1.0) 10^3/uL Eos # (0.0-0.7) 10^3/uL Baso # (0.0-0.1) 10^3/uL Absolute Nucleated RBC x10^3/uL Nucleated RBCs /100WBC Sodium (135-145) mmol/L Potassium (3.5-5.0) mmol/L Chloride (101-111) mmol/L Carbon Dioxide (21-32) mmol/L Anion Gap (6-13) BUN (6-20) mg/dL Creatinine (0.4-1.0) mg/dL Estimated GFR (MDRD) (>89) Glucose (70-100) mg/dL POC Whole Bld Glucose 309 H (70 - 100) mg/dL Lactic Acid (0.5-2.2) mmol/L Calcium (8.5-10.3) mg/dL Phosphorus (2.5-4.6) mg/dL Magnesium (1.7-2.8) mg/dL Albumin (3.2-5.5) g/dL Triglycerides ( - 149) mg/dL Cholesterol ( - 199) mg/dL LDL Cholesterol, Calc ( - 129) mg/dL VLDL Cholesterol mg/dL HDL Cholesterol (60 - ) mg/dL LDL/HDL Ratio (<4.4) Cholesterol/HDL Ratio (<4.4) TSH (0.34-5.60) uIU/mL Cortisol PM Sample ug/dL Urine Creatinine mg/dL Urine Sodium mmol/L Assessment/Plan - Problem List (1) Hyponatremia Impression: 1) Patient appeared hypovolemic on presentation therefore this is likely hypovolemic hyponatremia Patient was lethargic on presentation with ataxia. Today she is not OOB yet, but is not lethargic today. Symptoms came on gradually and are not severe despite such low levels of Na leads me to believe this is chronic hyponatremia, and patient admitted to always drinking free water liberally. Plan: Continue to correct sodium at slow rate Checked TSH: WNL Checked AM Cortisol: WNL Monitor Na q [address] head to look for tumor if no other source found Continue free water restriction of 800ml. Advised to drink sports drinks or Propel for hydration. (2) UTI (urinary tract infection) Conclusion/Plan: Patient has history of recurrent UTIs and is at a higher risk due to DM. Plan: Continue IV ceftriaxone Awaiting urine cx Qualifiers: Urinary tract infection type: acute cystitis (3) Diabetes Conclusion/Plan: Previously patient was told she has pre-diabetes. Now glu over 300 and HbA1C of 10.5 Patient has new diagnosis of diabetes, which I discussed with Pt and daughter at bedside. Plan: Start lantus 10 units subQ daily and SS insulin DM diet: ordered DM teaching: ordered Monitor BG while hospitalized Qualifiers: Diabetes mellitus type: type 2 (4) Hypothyroidism Conclusion/Plan: Patient on synthroid at home Plan: Checked TSH: level OK Continue synthorid home dose and adjust if needed (5) Aortic aneurysm Conclusion/Plan: Infra-renal aortic aneurysm measuring 3.8 x 3.6 cm Patient is a smoker. I counselled on need to quit smoking. Pt is unwilling and said she tried patches, gum, meds and qiting cold turkey already. Plan: Needs to follow up as outpatient to monitor size of AAA. Qualifiers: Aortic location: abdominal aorta Presence of rupture: without rupture Qualified Code(s): I71.4 - Abdominal aortic aneurysm, without rupture (6) COPD (chronic obstructive pulmonary disease) Conclusion/Plan: Patient has COPD from years of smoking. I started smoking cessation discussion with Pt and daughter at bedside. Plan: Albuterol and ipratropium and supplemental O2 as needed Qualifiers: COPD type: emphysema (7) Hypertension Conclusion/Plan: BP is stable Continue home meds and monitor VS (8) Hyperlipidemia Conclusion/Plan: Fasting lipid panel ordered. She needs aggressive LDL and Trig control, given DM. Continue home statin (9) Tobacco abuse Conclusion/Plan: Patient continues to smoke I began smoking cessation discussion with Pt and daughter at bedside. Nicotine patch for now (10) Prophylactic use of low molecular weight heparin for venous thromboembolism Conclusion/Plan: Place on lovenox while hospitalized
[2017-04-04] MEDS ORDERED: INSULIN ASPART 300 UNIT/3 ML PEN SUBQ SCH (11:44)
[2017-04-04] MEDS: INSU100I18 SUBQ SCH ×3 (12:11→21:28)
[2017-04-04 13:25] LABS: CALCIUM 7.8 mg/dL (8.5-10.3); POTASSIUM 4.1 mmol/L (3.5-5.0)
[2017-04-04 18:19] LABS: CALCIUM 7.9 mg/dL (8.5-10.3); CREATININE 0.9 mg/dL (0.4-1.0); POTASSIUM 4.1 mmol/L (3.5-5.0)
[2017-04-04] MEDS ORDERED: ATORVASTATIN 10 MG TABLET PO SCH (21:00)
[2017-04-04 21:22] LABS: CREATININE 0.9 mg/dL (0.4-1.0); POTASSIUM 3.9 mmol/L (3.5-5.0)
[2017-04-04] MEDS: cefTRIAXone 1 GM in SODIUM CHLORIDE 0.9% MINIBAG 100 ML IV SCH (21:27)
[2017-04-05 01:17] LABS: CALCIUM 7.8 mg/dL (8.5-10.3); CREATININE 0.9 mg/dL (0.4-1.0)
[2017-04-05] MEDS: IPRATROPIUM 0.2 MG/ML NEB INH PRN (05:04)
[2017-04-05 05:17] LABS: BASOPHILS # (AUTO) 0.1 10^3/uL (0.0-0.1); BASOPHILS % (AUTO) 0.6 %; EOSINOPHILS # (AUTO) 0.1 10^3/uL (0.0-0.7); EOSINOPHILS % (AUTO) 1.3 %; HCT - HEMATOCRIT 33.3 % (37.0-47.0); HGB - HEMOGLOBIN 11.5 g/dL (12.0-16.0); LYMPHOCYTES # (AUTO) 1.9 10^3/uL (1.5-3.5); LYMPHOCYTES % (AUTO) 23.6 %; MEAN CORPUSCULAR HEMOGLOBIN 30.9 pg (27.0-31.0); MEAN CORPUSCULAR HGB CONC 34.4 g/dL (32.0-36.0); MEAN CORPUSCULAR VOLUME 89.7 fL (81.0-99.0); MEAN PLATELET VOLUME 8.2 fL (7.9-10.8); MONOCYTES # (AUTO) 0.7 10^3/uL (0.0-1.0); MONOCYTES % (AUTO) 8.6 %; NEUTROPHILS # (AUTO) 5.2 10^3/uL (1.5-6.6); NEUTROPHILS % (AUTO) 65.9 %; RED BLOOD COUNT 3.72 10^6/uL (4.20-5.40); RED CELL DISTRIBUTION WIDTH 12.1 % (12.0-15.0); UNCORRECTED WHITE BLOOD COUNT 7.9 x10^3/uL; WHITE BLOOD COUNT 7.9 x10^3/uL (4.8-10.8)
[2017-04-05 05:31] LABS: CREATININE 0.9 mg/dL (0.4-1.0); MAGNESIUM 1.7 mg/dL (1.7-2.8); PHOSPHORUS 2.9 mg/dL (2.5-4.6); POTASSIUM 3.9 mmol/L (3.5-5.0)
[2017-04-05] MEDS: PANTOPRAZOLE 40 MG TABLET PO SCH (06:24)
[2017-04-05] MEDS: LEVOTHYROXINE 75 MCG TABLET PO SCH (06:24)
[2017-04-05] MEDS: PHENAZOPYRIDINE 100 MG TABLET PO SCH (06:24)
[2017-04-05] MEDS: SODIUM CHLORIDE FLUSH 0.9% 10 ML SYRINGE IVP SCH (06:24)
[2017-04-05] MEDS ORDERED: MAGNESIUM OXIDE 400 MG TABLET PO SCH (08:00)
[2017-04-05] MEDS: INSU100I18 SUBQ SCH ×2 (08:32→12:00)
[2017-04-05] MEDS: ASPIRIN EC 81 MG TABLET PO SCH (08:40)
[2017-04-05] MEDS: CLOPIDOGREL 75 MG TABLET PO SCH (08:40)
[2017-04-05] MEDS: METOPROLOL TARTRATE 25 MG TABLET PO SCH (08:40)
[2017-04-05] MEDS: NICOTINE 21 MG PATCH TOP SCH (08:41)
[2017-04-05] MEDS: ENOXAPARIN 40 MG/0.4 ML SYRINGE SUBQ SCH (08:41)
[2017-04-05 09:47] LABS: CREATININE 0.9 mg/dL (0.4-1.0)
--- NOTE | 2017-04-05 10:49 | Discharge Plan ---
Discharge Plan Disposition: Home, Self Care Condition: Fair Prescriptions: Blood-Glucose Meter [Glucometer] 1 each MC TID #1 each Blood Sugar Diagnostic [Glucometer Strips] 1 each MC TID #90 strip Cephalexin [Keflex] 500 mg PO BID #14 capsule Metformin HCl [Metformin HCl ER] 500 mg PO BID #60 tab.er.24 Nicotine 21 mg Patch [Nicoderm] 1 each TOP Q24H #30 patch Diet: Diabetic Activity Restrictions: No Restrictions Shower Restrictions: No Driving Restrictions: No Weight Bearing: Full Weight Instruction Topics: Diabetes Resources, Blood Sugar Check, Diabetes Carbs, Diabetes Keep Feet Healthy, Hypoglycemia, Hyperglycemia, Diabetes Healthy Meals No Smoking: If you smoke, Please STOP! Call for help.
[2017-04-05] MEDS ORDERED: NYSTATIN POWDER 15 GM TOP ONE (11:07)
[2017-04-05 12:52] VITALS: BP 136/52
[2017-04-05] MEDS ORDERED: INSULIN ASPART 300 UNIT/3 ML PEN SUBQ SCH (17:00)
[2017-04-05 17:07] LABS: HEMOGLOBIN A1C 1.04 g/dL
--- NOTE | 2017-04-06 07:05 | DISCHARGE SUMMARY ---
DATE OF ADMISSION: 04/03/2017 DATE OF DISCHARGE: 04/05/2017 ADMITTING DIAGNOSES: 1. Lethargy. 2. Diabetes out of control. New diagnosis. 3. Dehydration. 4. Urinary tract infection. This is an 82-year-old white female who lives in [place], but is living here for approximately 2 month s over the summer with her daughter. The patient has a history of chronic obstructive pulmonary disea se, atrial fibrillation, coronary artery disease with remote stenting, stromal sarcoma of the stomach , hyperlipidemia, renal cell carcinoma of the kidney with left nephrectomy, osteoarthritis, tobacco a buse, peripheral vascular disease with carotid endarterectomy, and a history of prediabetes. The patient presented with a 2 week history of weakness, poor p.o. intake, lethargy, spending most of her time in bed for approximately 5 days, and over the last 2 days complained of dysuria which were her typical urinary tract infection symptoms. The patient was brought to the emergency room by the shelley guajardo. She was so lethargic that the daughter gave all the answers. The patient was found to have a urinary tract infection and a glucose of 327 on presentation and a sodium of 110 (corrected sodium 11 4), along with dehydration. ALLERGIES: SULFA. Medications before admission were: 1. Baby aspirin. 2. Plavix. 3. Vicodin p.r.n. 4. Ativan. 5. Metoprolol tartrate 25 b.i.d. 6. Zofran. 7. Protonix. 8. Simvastatin. 9. Spiriva. 10. Synthroid. She is a 1-1/2 pack per day smoker and denies any alcohol use. Physical exam on admission showed obtundation, blood pressure of 140/80, heart rate of 94 to 103, oxy gen saturation 98% on room air and afebrile. She had dry mucous membranes, no JVD, diminished breath sounds diffusely consistent with chronic obstructive pulmonary disease, no cardiac murmur, no leg yadira ma. Cranial nerves 2 through 12 grossly intact. HOSPITAL COURSE AND PROBLEM LIST: 1. Hyponatremia. This was felt to be due to elevated glucose, and therefore, the corrected sodium was 114 which is still low. She had a urine sodium of 20. She was felt to have chronic hyponatremia prob ably on the basis of elevated glucose, poor p.o. intake for nearly 2 weeks, and admitting to drinking a lot of "free water." The patient had her sodium corrected with IV saline and restriction of free w ater. Her TSH was normal and morning cortisol level was normal. She was also advised to avoid free wa ter intake. 2. Urinary tract infection. The patient is at higher risk of this with her prediabetes history and no w full diabetes. Her HbA1c came back at 10.5. The patient was treated for a urinary tract infection w ith 3 days of IV ceftriaxone and the plan was to send her home for an additional 7 days on Keflex 500 mg p.o. b.i.d. 3. Diabetes. The patient has now become a full diabetic with a glucose over 300 on presentation and a n HbA1c of 10.5. During this admission she was started on sliding scale insulin and received diabetic teaching aggressively which she was very supportive of. She was discharged home on metformin 500 mg p.o. b.i.d., a Glucometer and glucose strips and plan to [facility] before flying home to [place]. 4. Hypothyroidism. The patient was continued on her Synthroid dose. 5. Chronic obstructive pulmonary disease with smoking history. The patient had a Nicoderm patch here and initially stated that she had no interest in quitting smoking, but on the day of discharge was in terested in this and did ask to continue the Nicoderm patch with a titrating protocol. She was never in need of supplemental oxygen or inhalers during this admission. 6. Hypertension. This was under control on her current medications. 7. Hyperlipidemia. Because of her diabetes, the LDL control should now be below 100 and her medicatio ns were continued for managing this. Significant results during this admission included a chest x-ray showing chronic obstructive pulmonar y disease, CT of the chest showing emphysema and nonspecific mediastinal lymph nodes measuring 1 cm a nd aortic ectasia with mural atherosclerosis, and a CT of the abdomen showing a solitary right kidney , colonic diverticula without diverticulitis, and severe aortic atherosclerosis with an infrarenal ao rtic aneurysm measuring 3.8 x 3.6 cm. The patient was discharged in fair condition and was advised to followup with her primary care provid er after returning home to [place]. JOB #: [id number] EXT JOB #:[id number]
== END 2017-04-05 16:45 | disposition home or self-care (01) | DRG 641 ==
LOC: ED 17:37 → ICU 20:38
PROVIDERS: ADMIT Internal Medicine; ATTEND Internal Medicine
DX: E87.1 Hypo-osmolality and hyponatremia (principal); N39.0 Urinary tract infection, site not specified; E11.65 Type 2 diabetes mellitus with hyperglycemia; E86.0 Dehydration; J43.9 Emphysema, unspecified; Z86.73 Personal history of transient ischemic attack (TIA), and cerebral infarction without residual deficits; I10 Essential (primary) hypertension; E78.5 Hyperlipidemia, unspecified; I48.91 Unspecified atrial fibrillation; I25.10 Atherosclerotic heart disease of native coronary artery without angina pectoris; I73.9 Peripheral vascular disease, unspecified; F17.210 Nicotine dependence, cigarettes, uncomplicated; I71.4 Abdominal aortic aneurysm, without rupture; E03.9 Hypothyroidism, unspecified; M19.90 Unspecified osteoarthritis, unspecified site; Z95.5 Presence of coronary angioplasty implant and graft; Z90.5 Acquired absence of kidney; Z79.82 Long term (current) use of aspirin; Z79.02 Long term (current) use of antithrombotics/antiplatelets; Z79.899 Other long term (current) drug therapy; Z79.4 Long term (current) use of insulin; Z85.528 Personal history of other malignant neoplasm of kidney; Z87.19 Personal history of other diseases of the digestive system
CPT/HCPCS: 36415; 51701; 71020; 71260; 74176; 80048; 80053; 80061; 81001; 81003; 82040; 82533; 82570; 83036; 83605; 83690; 83735; 83930; 83935; 84100; 84295; 84300; 84443; 85025; 87086; 87150; 93005; 94640; 96360; 99284; 99285

== ENCOUNTER 2017-04-08 18:34 | Outpatient (CLI) | payer MEDICARE | END 2017-04-08 18:35 | disposition critical access hospital (66) | LOC: EMS 18:34 | PROVIDERS: ATTEND Surgery | DX: R41.82 Altered mental status, unspecified (principal) | CPT/HCPCS: A0425; A0429 ==

== ENCOUNTER 2017-04-08 18:47 | Inpatient (IN) | payer MEDICARE ==
[2017-04-08] MEDS ORDERED: SODIUM CHLORIDE 0.9% 1,000 ML IV ONE ×2 (18:54→19:46)
--- NOTE | 2017-04-08 18:56 | ED Physician Documentation ---
History of Present Illness - Stated complaint Stated Complaint: AMS - History obtained from History obtained from: Family, Other (review of recent medical records) - History of Present Illness Timing: Other (This is an 82-year-old woman who is visiting from [place]. She was admitted here on the first of this month and discharged on the third. She had profound hyponatremia and new onset diabetes which is being treated with oral medications. Also UTI on Keflex. She was doing well after her discharge until today and she had progressive altered level of consciousness in the last 4 hours or so. Blood sugar and route was 290. 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 (Left nephrectomy ) Cardiovascular: Coronary stent - Present Medications Home Medications: Ambulatory Orders Medication Instructions Recorded Confirmed Aspirin [Adult Low Dose Aspirin EC] 81 mg PO DAILY 04/03/17 04/08/17 Clopidogrel [Plavix] 75 mg PO DAILY 04/03/17 04/08/17 Hydrocodone/Acetaminophen [Vicodin 1 each PO Q6HR 04/03/17 04/08/17 5-300 mg Tablet] LORazepam [Ativan] 0.5 mg DAILY 04/03/17 04/08/17 Metoprolol Tartrate 25 mg PO BID 04/03/17 04/08/17 Ondansetron HCl [Zofran] 4 mg PO Q8HR 04/03/17 04/08/17 Pantoprazole [Protonix] 40 mg PO DAILY 04/03/17 04/08/17 Simvastatin 20 mg PO DAILY 04/03/17 04/08/17 Tiotropium [place] [Spiriva] 18 mcg IH DAILY 04/03/17 04/08/17 Levothyroxine [Synthroid] 75 mcg PO QDAC 04/04/17 04/08/17 Blood Sugar Diagnostic [Glucometer 1 each MC TID #90 strip 04/05/17 04/08/17 Strips] Blood-Glucose Meter [Glucometer] 1 each MC TID #1 each 04/05/17 04/08/17 Cephalexin [Keflex] 500 mg PO BID #14 capsule 04/05/17 04/08/17 Metformin HCl [Metformin HCl ER] 500 mg PO BID #60 tab.er.24 04/05/17 04/08/17 Nicotine 21 mg Patch [Nicoderm] 1 each TOP Q24H #30 patch 04/05/17 04/08/17 - Allergies Allergies/Adverse Reactions: Allergies Allergy/AdvReac Type Severity Reaction Status Date / Time adhesive tape Allergy Rash Verified 04/08/17 18:56 Sulfa (Sulfonamide Allergy Unknown Verified 04/08/17 18:56 Antibiotics) - Social History Does the pt smoke?: Yes Smoking Status: Current every day smoker Does the pt drink ETOH?: No Does the pt have substance abuse?: No - POLST Patient has POLST: No POLST Status: Full Code PD ED PE NORMAL - Vitals Vital signs reviewed: Yes - General General: Other (She slowly makes eye contact and has her eyes open but is pretty much nonverbal for me. That said she does follow simple commands and moves all extremities on command. She opens her mouth on command and takes deep breaths on command.) - HEENT HEENT: PERRL, EOMI, Other (Dry mucous membranes) - Neck Neck: Supple, no meningeal sign, No bony TTP - Cardiac Cardiac: No murmur, Other (Tachycardia) - Respiratory Respiratory: No respiratory distress, Clear bilaterally - Abdomen Abdomen: Soft, Non tender - Derm Derm: Normal color, Warm and dry, No rash - Extremities Extremities: No edema, No calf tenderness / cord - Neuro Neuro: No motor deficit, No sensory deficit Results - Vitals Vitals: Vital Signs - 24 hr 04/08/17 04/08/17 04/08/17 18:52 19:26 20:26 Temperature 36.6 C Heart Rate 100 95 90 Respiratory 16 16 18 Rate Blood Pressure 157/70 H 152/64 H 174/63 H O2 Saturation 98 97 97 04/08/17 20:39 Temperature Heart Rate 87 Respiratory 16 Rate Blood Pressure 153/48 H O2 Saturation 98 Oxygen O2 Source Room air - EKG (time done) 1906 Rate: Rate (enter#) (96) Rhythm: NSR Intervals: Normal DE, Other (LPFB) Ischemia: Non specific changes. No: ST elevation c/w ischemia Computer interpretation: Agree with computer - Labs Labs: Laboratory Tests 04/08/17 04/08/17 04/08/17 19:21 19:21 19:21 WBC 6.1 RBC 4.14 L Hgb 12.5 Hct 37.8 MCV 91.4 MCH 30.1 MCHC 32.9 RDW 12.3 Plt Count 269 MPV 7.4 L Neut # 2.9 Lymph # 2.3 [place] # 0.6 Eos # 0.2 Baso # 0.1 Absolute Nucleated RBC 0.00 Nucleated RBCs 0.0 Sodium 127 L Potassium 4.0 Chloride 95 L Carbon Dioxide 20 L Anion Gap 12.0 BUN 10 Creatinine 0.9 Estimated GFR (MDRD) 60 L Glucose 294 H Lactic Acid Calcium 8.8 Magnesium 1.3 L Total Bilirubin 0.6 AST 16 ALT 17 Alkaline Phosphatase 82 Total Creatine Kinase 18 L CK-MB (CK-2) 1.3 Troponin I < 0.04 Total Protein 6.0 L Albumin 3.3 Globulin 2.7 Albumin/Globulin Ratio 1.2 Lipase 26 Urine Color Urine Clarity Urine pH Ur Specific Axis Urine Protein Urine Glucose (UA) Urine Ketones Urine Occult Blood Urine Nitrite Urine Bilirubin Urine Urobilinogen Ur Leukocyte Esterase Ur Microscopic Review Urine Culture Comments Ethyl Alcohol < 5.0 04/08/17 04/08/17 19:23 20:19 WBC RBC Hgb Hct MCV MCH MCHC RDW Plt Count MPV Neut # Lymph # [place] # Eos # Baso # Absolute Nucleated RBC Nucleated RBCs Sodium Potassium Chloride Carbon Dioxide Anion Gap BUN Creatinine Estimated GFR (MDRD) Glucose Lactic Acid 0.9 Calcium Magnesium Total Bilirubin AST ALT Alkaline Phosphatase Total Creatine Kinase CK-MB (CK-2) Troponin I Total Protein Albumin Globulin Albumin/Globulin Ratio Lipase Urine Color YELLOW Urine Clarity HAZY Urine pH 6.5 Ur Specific Axis 1.010 Urine Protein NEGATIVE Urine Glucose (UA) >=1000 H Urine Ketones 40 H Urine Occult Blood LARGE H Urine Nitrite NEGATIVE Urine Bilirubin NEGATIVE Urine Urobilinogen 0.2 (NORMAL) Ur Leukocyte Esterase NEGATIVE Ur Microscopic Review INDICATED Urine Culture Comments Not Reportable Ethyl Alcohol PD MEDICAL DECISION MAKING - ED course ED course: 82-year-old woman with recent admission for UTI and hyponatremia comes back with acutely altered mental status of unclear etiology. No clinical evidence of stroke. She does have modest hypomagnesemia which is repleted IV, her hyponatremia is improved. At 8:33 PM she did have a 9 beat run of V. tach. Unclear if it was pulseless, but she was still conscious shortly after at bedside. I spoke with Dr. Pollack the hospitalist for admission at 2041. Departure - Departure Disposition: 66 [facility] DC/Xfer Clinical Impression: Hyponatremia, Dehydration, Ventricular tachycardia Altered mental status Qualifiers: Altered mental status type: delirium Qualified Code(s): R41.0 - Disorientation , unspecified Condition: Stable
[2017-04-08 19:32] LABS: BASOPHILS # (AUTO) 0.1 10^3/uL (0.0-0.1); BASOPHILS % (AUTO) 0.9 %; EOSINOPHILS # (AUTO) 0.2 10^3/uL (0.0-0.7); EOSINOPHILS % (AUTO) 3.7 %; HCT - HEMATOCRIT 37.8 % (37.0-47.0); HGB - HEMOGLOBIN 12.5 g/dL (12.0-16.0); LYMPHOCYTES # (AUTO) 2.3 10^3/uL (1.5-3.5); LYMPHOCYTES % (AUTO) 37.3 %; MEAN CORPUSCULAR HEMOGLOBIN 30.1 pg (27.0-31.0); MEAN CORPUSCULAR HGB CONC 32.9 g/dL (32.0-36.0); MEAN CORPUSCULAR VOLUME 91.4 fL (81.0-99.0); MEAN PLATELET VOLUME 7.4 fL (7.9-10.8); MONOCYTES # (AUTO) 0.6 10^3/uL (0.0-1.0); MONOCYTES % (AUTO) 10.6 %; NEUTROPHILS # (AUTO) 2.9 10^3/uL (1.5-6.6); NEUTROPHILS % (AUTO) 47.5 %; RED BLOOD COUNT 4.14 10^6/uL (4.20-5.40); RED CELL DISTRIBUTION WIDTH 12.3 % (12.0-15.0); UNCORRECTED WHITE BLOOD COUNT 6.1 x10^3/uL; WHITE BLOOD COUNT 6.1 x10^3/uL (4.8-10.8)
[2017-04-08 19:45] LABS: ALBUMIN/GLOBULIN RATIO 1.2 (1.0-2.2); BILIRUBIN,TOTAL 0.6 mg/dL (0.2-1.0); BUN - BLOOD UREA NITROGEN 10 mg/dL (6-20); CALCIUM 8.8 mg/dL (8.5-10.3); CARBON DIOXIDE - CO2 20 mmol/L (21-32); CHLORIDE 95 mmol/L (101-111); CREATININE 0.9 mg/dL (0.4-1.0); GFR - MDRD 60 (>89); GLUCOSE 294 mg/dL (70-100); LIPASE 26 U/L (22-51); MAGNESIUM 1.3 mg/dL (1.7-2.8); SODIUM 127 mmol/L (135-145)
[2017-04-08] MEDS ORDERED: MAGNESIUM SULFATE 2 GRAM 50 ML IV ONE ×2 (19:46→19:53)
[2017-04-08 19:50] LABS: CREATINE KINASE MB 1.3 ng/mL (0.6-6.3)
[2017-04-08 19:54] LABS: TROPONIN I < 0.04 ng/mL (<0.49)
--- NOTE | 2017-04-08 20:04 | CT Preliminary Report ---
Exam: CT Head W/O IMPRESSION: 1. Mild generalized atrophy and chronic microvascular angiopathy. 2. No acute intracranial abnormality. [facility] SITE ID: [id number]
--- NOTE | 2017-04-08 20:06 | CT Report ---
EXAM: CT HEAD EXAM DATE: 04/08/2017 07:47 PM. CLINICAL HISTORY: Altered mental status. Gradual onset of weakness and decline. Reason UTI. COMPARISON: None. TECHNIQUE: Multiaxial CT images were obtained from the foramen magnum to the vertex. IV contrast: Non e. Reformats: Coronal. In accordance with CT protocol optimization, one or more of the following dose reduction techniques w ere utilized for this exam: automated exposure control, adjustment of mA and/or KV based on patient s ize, or use of iterative reconstructive technique. FINDINGS: Parenchyma: Mild patchy white matter hypoattenuation, compatible with chronic small vessel ischemic c hange. No intraparenchymal hemorrhage, mass effect, or CT findings of evolving acute/subacute infarct . Nelson-white differentiation is distinct. Extraaxial Spaces: Mild diffuse sulcal prominence, compatible with generalized atrophy. No subdural o r epidural collections identified. Ventricles: Normal in size and position. Sinuses: Imaged paranasal sinuses, orbits, and mastoids show no significant abnormality. Bones: No evidence of fracture or calvarial defect. Other: Atherosclerotic calcifications of the bilateral cavernous internal carotid arteries. IMPRESSION: 1. Mild generalized atrophy and chronic microvascular angiopathy. 2. No acute intracranial abnormality. [facility] Referring Provider Line: [phone] SITE ID: [id number]
--- NOTE | 2017-04-08 20:06 | XRAY Preliminary Report ---
Exam: XR Chest 1 View IMPRESSION: No acute cardiopulmonary abnormality. [facility] SITE ID: [id number]
--- NOTE | 2017-04-08 20:08 | XRAY Report ---
EXAM: CHEST RADIOGRAPHY EXAM DATE: 04/08/2017 07:49 PM. CLINICAL HISTORY: Altered mental status. Gradual onset of weakness and decline. COMPARISON: CT chest and chest radiograph 09/22/2016. TECHNIQUE: 1 view. FINDINGS: Lungs/Pleura: Unchanged mild pleural thickening. No focal consolidation or evidence of edema. No pleu ral effusion or pneumothorax. Mediastinum: Normal cardiomediastinal contour. Atherosclerotic calcifications within the aorta. Other: Surgical clips in the upper abdomen. IMPRESSION: No acute cardiopulmonary abnormality. [facility] Referring Provider Line: [phone] SITE ID: [id number]
[2017-04-08 20:31] LABS: BILIRUBIN,URINE NEGATIVE (NEGATIVE); PH,URINE 6.5 PH (5.0-7.5)
[2017-04-08 20:37] LABS: UA w/ MICROSCOPIC CHARGE YES
[2017-04-08 21:04] LABS: UR CULTURE IF IND NOT INDICATED
[2017-04-08] MEDS ORDERED: SODIUM CHLORIDE FLUSH 0.9% 10 ML SYRINGE IVP PRN (21:46)
[2017-04-08] MEDS ORDERED: SODIUM CHLORIDE 0.9% 1,000 ML IV SCH (22:00)
[2017-04-08] MEDS ORDERED: METOPROLOL 5 MG/5 ML VIAL IVP STA (22:28)
[2017-04-08] MEDS ORDERED: METOPROLOL 5 MG/5 ML VIAL IVP ONE (22:34)
[2017-04-09] MEDS: INSULIN REGULAR HUMAN 100 UNIT/1 ML 10 ML MDV SUBQ SCH ×4 (00:53→20:16)
[2017-04-09] MEDS: SODIUM CHLORIDE FLUSH 0.9% 10 ML SYRINGE IVP SCH ×4 (01:01→21:08)
--- NOTE | 2017-04-09 02:34 | HISTORY & PHYSICAL EXAMINATION ---
Chief Complaint - Chief Complaint Chief Complaint: AMS History of Present Illness - Admitted From Admitted From:: ER - History Obtained From Records Reviewed: yes History obtained from: family - daughter, son-in-law - History of Present Illness HPI Comment/Other: 82yoF with CAD s/p stent, PVD, s/p CEA, COPD, current smoker, hypothyroid, h/o RCC s/p nephrectomy, h/o stromal sarcoma of the stomach, tobacco use. Pt lives in [place] and is here visiting her daughter for the past 2 months. Per family, pt has not been herself most of the time she has been up here. She was admitted 04/03- with new diagnosis of DM (A1C=10), UTI and hyponatremia likely due to polydipsia. Head and Chest CTs were negative, cortisol was normal, as were TSH and lipid levels. She was found to have a UTI and placed initially on Ceftriaxone and discharged wt keflex to complete a 10day course of abx, as well as being placed on free water restriction, which family has been following. Initially pt did well at home and was getting stronger each day. However today, family reports that this afternoon she started getting more lethargic, then became unresponsive. She was staring out the window, eyes open, but would not respond to questions In ED her sodium level corrects to 129, trop neg, CXR neg, Head CT with chronic changes, no acute findings. Afebrile, hypertensive, intermittent tachycardia. he had 9 beat run of Vtach, mag low at 1.3, replaced IV with no further Vtach. UA with ketones and >1000glc and blood, LE/nitr (-). Mental status has improved somewhat to where she is now answering some questions and following simple commands. Review of Systems - Constitutional Constitutional: reports: Fatigue, Fever, Weakness - Cardiovascular Cariovascular: reports: Irregular heart rate - Musculoskeletal Musculoskeletal: reports: Stiffness - Other Findings Other Findings: unable to obtain as pt with AMS History - Past Medical History Cardiovascular: reports: Coronary artery disease Respiratory: reports: COPD Neuro: reports: TIA Endocrine/Autoimmune: reports: Type 2 diabetes, HyPOthyroidism GI: reports: Chronic constipation, Diverticulitis, Other : reports: Incontinence, Other HEENT: reports: None Psych: reports: None Musculoskeletal: reports: Osteoarthritis, Scoliosis Derm: reports: Other Other Past Medical History: RCC s/p L Nephrectomy, stromal sarcoma of stomach. 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 - Substance History Use: Uses substance without health or social issues: Tobacco - POLST Patient has POLST: No POLST Status: Full Code Meds/Allgy - Home Medications Home Medications: Ambulatory Orders Medication Instructions Recorded Confirmed Aspirin [Adult Low Dose Aspirin EC] 81 mg PO DAILY 04/03/17 04/08/17 Clopidogrel [Plavix] 75 mg PO DAILY 04/03/17 04/08/17 Hydrocodone/Acetaminophen [Vicodin 1 each PO Q6HR 04/03/17 04/08/17 5-300 mg Tablet] LORazepam [Ativan] 0.5 mg DAILY 04/03/17 04/08/17 Metoprolol Tartrate 25 mg PO BID 04/03/17 04/08/17 Ondansetron HCl [Zofran] 4 mg PO Q8HR 04/03/17 04/08/17 Pantoprazole [Protonix] 40 mg PO DAILY 04/03/17 04/08/17 Simvastatin 20 mg PO DAILY 04/03/17 04/08/17 Tiotropium [place] [Spiriva] 18 mcg IH DAILY 04/03/17 04/08/17 Levothyroxine [Synthroid] 75 mcg PO QDAC 04/04/17 04/08/17 Blood Sugar Diagnostic [Glucometer 1 each MC TID #90 strip 04/05/17 04/08/17 Strips] Blood-Glucose Meter [Glucometer] 1 each MC TID #1 each 04/05/17 04/08/17 Cephalexin [Keflex] 500 mg PO BID #14 capsule 04/05/17 04/08/17 Metformin HCl [Metformin HCl ER] 500 mg PO BID #60 tab.er.24 04/05/17 04/08/17 Nicotine 21 mg Patch [Nicoderm] 1 each TOP Q24H #30 patch 04/05/17 04/08/17 - Allergies Allergies/Adverse Reactions: Allergies Allergy/AdvReac Type Severity Reaction Status Date / Time adhesive tape Allergy Rash Verified 04/08/17 18:56 Sulfa (Sulfonamide Allergy Unknown Verified 04/08/17 18:56 Antibiotics) Exam - Vital Signs Reviewed Vital Signs: Yes Vital Signs: Vital Signs x48h Temp Pulse Pulse Resp BP BP Pulse Ox 04/08/17 23:40 36.7 C 98 16 167/68 H 97 04/08/17 22:38 98 16 155/75 H 95 - Physical Exam General Appearance: positive: Moderate distress, Anxious, Other (constant movement, moaning) Eyes Bilateral: positive: PERRL, EOMI, Conjunctivae nml, No scleral icterus ENT: positive: Pharynx nml, Dry mucous membranes. negative: Oral lesions Neck: positive: Thyroid nml. negative: Thyromegaly, Lymphadenopathy (R), Lymphadenopathy (L), Stiff neck Respiratory: positive: Chest non-tender, No respiratory distress, Breath sounds nml. negative: Wheezes, Rales, Rhonchi Cardiovascular: positive: No murmur, No gallop, Tachycardia Peripheral Pulses: positive: 1+ Abdomen: positive: Non-tender, No distention. negative: Guarding, Rebound Back: negative: CVA tenderness (R), CVA tenderness (L) Skin: positive: No rash, Warm, Dry, Other (multiple bruises on extremities 1cm ulceration with fibrinous exudate on upper back (mole frozen, scab fell off)) Neurologic/Psychiatric: positive: Disoriented to person, Disoriented to place, Disoriented to time, Weakness Reflexes: Bicep (R): 0, Bicep (L): 0, Knee (R): 0, Knee (L): 0, Ankle (R): 3+, Ankle (L): 0 Babinski Reflex: Right: Up, Left: Absent Conclusion/Plan - Lab Results Lab results reviewed: Yes Fish Bones: 04/08/17 19:21 04/08/17 19:21 - Diagnostic Imaging Results Diagnostic Imaging Results: positive: Final report reviewed Diagnostic Imaging Results Comments: Head CT - chronic microvascular changes, generalized atrophy +atherosclerosis CXR (-) acute [address] - emphysema, mediastinal LN - Other Other Results/Comments: TSH 1.02 Cholesterol 108 (LDL 44, HDL 47) 8/2 AM cortisol wnl Issues/Core Measures - Anticipated LOS Anticipated Stay Length: Less than 2 midnights - Issues Hospital Issues and Management Plan: 1. Altered mental status, unclear etiology possibly due to hyponatremia, though improved from prior visit. metabolic derangements resolved, possibly seizures - IV fluids, monitor electrolytes - check serum and urine osm - check urine electrolytes - recheck 8am cortisol - continue free water restriction - if persists or worsens, consider transferring for EEG to eval seizure 2. DM with hyperglycemia, no DKA - stop Metformin for now - SSI - NPO while AMS, carb control diet once MS improves 3. Tachycardia with run of V-tach - mag replaced, should prevent further episodes - monitor Magnesium - monitor on tele for further events 4. CAD, PVD - continue ASA, plavix, statin - monitor on telemetry 5. h/o RCC s/p nephrectomy and h/o stromal sarcoma of stomach. Do not appear active at this time - if sx worsen or do not improve, consider CT abd/pelvis to eval mets or other pathology 6. Recent UTI, current UA improved - change back to Ceftriaxone to complete 7day course of abx - would not use PCN beta-lactam due to higher seizure potential 7. DVT prophy - heparin 8. dispo - likely home with family once mental status improved - anticpiate hospital LOS <96hrs
[2017-04-09] MEDS: LEVOTHYROXINE 75 MCG TABLET PO SCH (06:35)
[2017-04-09] MEDS ORDERED: TIOTROPIUM INHALER INH SCH (07:00)
[2017-04-09] MEDS ORDERED: PANTOPRAZOLE 40 MG TABLET PO SCH (09:00)
[2017-04-09] MEDS: POLYETHYLENE GLYCOL 3350 17 GM PACKET PO SCH (09:25)
[2017-04-09] MEDS: NICOTINE 14 MG PATCH TOP SCH (09:25)
[2017-04-09] MEDS: LORazepam 0.5 MG TABLET PO SCH (09:26)
[2017-04-09] MEDS: CLOPIDOGREL 75 MG TABLET PO SCH (09:26)
[2017-04-09] MEDS: ASPIRIN 325 MG TABLET PO SCH (10:56)
[2017-04-09] MEDS: PRAVASTATIN 40 MG TABLET PO SCH (10:56)
[2017-04-09] MEDS: cefTRIAXone 1 GM in SODIUM CHLORIDE 0.9% MINIBAG 100 ML IV SCH (10:56)
[2017-04-09] MEDS: HEPARIN 5,000 UNIT/ML VIAL SUBQ SCH ×2 (11:20→21:14)
[2017-04-09] MEDS: IPRATROPIUM 0.2 MG/ML NEB INH SCH ×3 (15:37→22:35)
--- NOTE | 2017-04-09 18:25 | PROVIDER PROGRESS NOTE ---
Hospitalist Cross-cover Note - Cross-Cover Note Cross-Cover Note: Pt had another episode of "dazing off" and then couldn't remember where she was or that she is now a Diabetic (dx 1 week ago on an admission here), per nancy who saw this. RN was not called. I examined Pt @ 6 pm: HR and BP are stable, no fever, skin warm and dry. A & O x 3, no focal neurologic deficit of face arms or legs. Labs reviewed. Imp: Absence seizure vs TIA I called Neuro at [facility] for advice. Dr Memo Jansen responded and advised W/U for TIA with imaging and EEG for seizure W/U. Plan: Will change Pt to inpt status and order brain MRI. We have no EEG capability here, she will need either empiric seizure meds, after repeat discussion with Neuro, or EEG.
[2017-04-09] MEDS: PANTOPRAZOLE 40 MG TABLET PO SCH (21:08)
[2017-04-09] MEDS: INSULIN ASPART 300 UNIT/3 ML PEN SUBQ SCH (21:45)
[2017-04-10] MEDS ORDERED: LACTULOSE 10 GM /15 ML UDC PO ONE (05:11)
[2017-04-10] MEDS: LEVOTHYROXINE 75 MCG TABLET PO SCH (06:20)
[2017-04-10] MEDS: SODIUM CHLORIDE FLUSH 0.9% 10 ML SYRINGE IVP SCH ×3 (06:21→20:22)
[2017-04-10] MEDS: IPRATROPIUM 0.2 MG/ML NEB INH SCH ×3 (08:08→15:46)
[2017-04-10] MEDS: INSULIN ASPART 300 UNIT/3 ML PEN SUBQ SCH ×4 (09:35→20:22)
[2017-04-10] MEDS: LORazepam 0.5 MG TABLET PO SCH (09:37)
[2017-04-10] MEDS: HEPARIN 5,000 UNIT/ML VIAL SUBQ SCH ×2 (09:37→20:21)
[2017-04-10] MEDS: CLOPIDOGREL 75 MG TABLET PO SCH (09:37)
[2017-04-10] MEDS: cefTRIAXone 1 GM in SODIUM CHLORIDE 0.9% MINIBAG 100 ML IV SCH (09:37)
[2017-04-10] MEDS: POLYETHYLENE GLYCOL 3350 17 GM PACKET PO SCH (09:38)
[2017-04-10] MEDS: NICOTINE 14 MG PATCH TOP SCH (09:38)
[2017-04-10] MEDS: PRAVASTATIN 40 MG TABLET PO SCH (10:05)
[2017-04-10] MEDS: ASPIRIN 325 MG TABLET PO SCH (10:05)
[2017-04-10] MEDS: METOPROLOL TARTRATE 25 MG TABLET PO SCH (18:56)
[2017-04-10] MEDS ORDERED: LEVOTHYROXINE 75 MCG TABLET PO SCH (19:00)
--- NOTE | 2017-04-10 20:05 | MRI Preliminary Report ---
Exam: MRI Brain W/O IMPRESSION: Significantly motion limited study. No evidence for large intracranial space-occupying ma ss or acute hemorrhage or stroke. Diffuse atrophy and extensive white matter disease are present cons istent with aging and chronic small vessel ischemic disease. [facility] SITE ID: [id number]
[2017-04-10] MEDS: PANTOPRAZOLE 40 MG TABLET PO SCH (20:22)
--- NOTE | 2017-04-10 20:38 | MRI Report ---
EXAM: MRI BRAIN WITHOUT CONTRAST EXAM DATE: 04/10/2017 05:35 PM. CLINICAL HISTORY: Seizures. COMPARISON: None. TECHNIQUE: Multiplanar, multisequence T1-weighted and fluid-sensitive MR sequences of the brain were performed. Sequences optimized for epilepsy evaluation. Other: None. IV Contrast: None. FINDINGS: Brain Volume: Mild to moderate diffuse atrophy. Parenchyma/Dura: No restricted diffusion to suggest acute or recent ischemic infarct. No cerebral hem orrhage. No mass effect, midline shift or abnormal subdural fluid collection. [id number] multif ocal nonspecific white matter disease in both cerebral hemispheres. Findings are likely secondary to aging and chronic ischemic brain disease. No clear evidence for a space-occupying mass. Evaluation fo r infection and tumor is limited without contrast. Anatomic imaging on this study is somewhat motion limited on various sequences, notably the sagittal T1, axial T2, coronal T2 and coronal T2 FLAIR sequ ences. No developmental midline anomaly. No typical findings of mesial temporal sclerosis. No obvious galindo m atter heterotopia or other gross migrational anomaly. Ventricles/Cisterns: Ventriculomegaly, consistent with atrophy, no evidence for hydrocephalus. Sinuses: No evidence for acute sinus disease. Bones: Upper cervical spinal column degenerative changes are probably present but are indistinct. Other: None. IMPRESSION: Significantly motion limited study. No evidence for large intracranial space-occupying ma ss or acute hemorrhage or stroke. Diffuse atrophy and extensive white matter disease are present cons istent with aging and chronic small vessel ischemic disease. [facility] Referring Provider Line: [phone] SITE ID: [id number]
[2017-04-11] MEDS ORDERED: BISACODYL 10 MG SUPP PR ONE (04:13)
[2017-04-11 05:36] LABS: CALCIUM 9.1 mg/dL (8.5-10.3); POTASSIUM 4.6 mmol/L (3.5-5.0)
[2017-04-11] MEDS: SODIUM CHLORIDE FLUSH 0.9% 10 ML SYRINGE IVP SCH ×2 (06:36→13:34)
[2017-04-11] MEDS: LEVOTHYROXINE 75 MCG TABLET PO SCH (06:36)
[2017-04-11] MEDS: INSULIN ASPART 300 UNIT/3 ML PEN SUBQ SCH ×2 (08:17→11:56)
[2017-04-11] MEDS: LORazepam 0.5 MG TABLET PO SCH (08:39)
[2017-04-11] MEDS: CLOPIDOGREL 75 MG TABLET PO SCH (08:39)
[2017-04-11] MEDS ORDERED: ASPIRIN CHEW 81 MG TABLET ONE (08:40)
[2017-04-11] MEDS: NICOTINE 14 MG PATCH TOP SCH (08:40)
[2017-04-11] MEDS: ASPIRIN 325 MG TABLET PO SCH (08:40)
[2017-04-11] MEDS: PRAVASTATIN 40 MG TABLET PO SCH (08:41)
[2017-04-11] MEDS: POLYETHYLENE GLYCOL 3350 17 GM PACKET PO SCH (08:42)
[2017-04-11] MEDS: METOPROLOL TARTRATE 25 MG TABLET PO SCH (08:42)
[2017-04-11] MEDS: HEPARIN 5,000 UNIT/ML VIAL SUBQ SCH (08:46)
[2017-04-11] MEDS ORDERED: DOCUSATE SODIUM 250 MG CAPSULE PO SCH (09:00)
[2017-04-11] MEDS ORDERED: SENNA 8.6 MG TABLET PO SCH (09:00)
[2017-04-11] MEDS: IPRATROPIUM 0.2 MG/ML NEB INH SCH ×4 (09:12→12:51)
--- NOTE | 2017-04-11 14:19 | PROVIDER PROGRESS NOTE ---
Assessment/Plan - Problem List (1) Altered mental status Qualifiers: Altered mental status type: delirium Qualified Code(s): R41.0 - Disorientation, unspecified Assessment/Plan: unclear etiology possibly due to hyponatremia, though improved from prior visit. metabolic derangements resolved, possibly seizures or TIA - IV fluids given and electrolytes within normal limits - Patient had further episodes yesterday but appears well today - MRI is ordered for today - If patient has no further episodes and MRI negative will assume this was TIA as patient has multiple risk factors for TIA and optimize patients medications and control of DM - Patient will need neurology follow up as outpatient for EEG and seizure treatment if these episodes continue 2. DM with hyperglycemia - no DKA - stopped Metformin - SS [place] - Started on DM diet - BG in the 200s 3. Tachycardia with run of V-tach - mag replaced, should prevent further episodes - monitor Magnesium - monitor on tele no further episodes 4. CAD, PVD - continue ASA, plavix, statin - monitor on telemetry 5. h/o RCC s/p nephrectomy and h/o stromal sarcoma of stomach. Do not appear active at this time - if sx worsen or do not improve, consider CT abd/pelvis to eval mets or other pathology 6. Recent UTI, current UA improved - change back to Ceftriaxone to complete 7day course of abx - would not use PCN beta-lactam due to higher seizure potential 7. DVT prophy - heparin 8. dispo - likely home tomorrow if patient does not have anymore episodes and MRI is negative - Current Meds Current Meds: Current Medications Generic Name Dose Route Start Last Admin Trade Name Raji PRN Reason Stop Dose Admin Aspirin 81 mg 04/09/17 09:00 04/11/17 08:40 Jen PO 81 mg DAILY INGRID Administration Clopidogrel Bisulfate 75 mg 04/09/17 09:00 04/11/17 08:39 Plavix PO 75 mg DAILY INGRID Administration Docusate Sodium 250 - 500 mg 04/11/17 09:00 04/11/17 08:40 Colace 250mg Capsule PO Not Given DAILY [facility] Heparin Sodium (Porcine) 5,000 unit 04/09/17 09:00 04/11/17 08:46 SUBQ 5,000 unit BID INGRID Administration Insulin Aspart 1 - 9 unit 04/10/17 21:00 04/11/17 11:56 Novolog SUBQ 7 unit 0800,1200,1700,2100 INGRID Administration Protocol Ipratropium [place] 0.5 mg 04/10/17 07:00 04/11/17 12:51 Atrovent INH 0.5 mg RTQID INGRID Administration Levothyroxine Sodium 75 mcg 04/09/17 07:00 04/11/17 06:36 Synthroid PO 75 mcg QDAC INGRID Administration Lorazepam 0.5 mg 04/09/17 09:00 04/11/17 08:39 Ativan PO 0.5 mg DAILY INGRID Administration Metoprolol Tartrate 25 mg 04/10/17 19:00 04/11/17 08:42 Lopressor PO 25 mg BID INGRID Administration Nicotine 1 patch 04/09/17 09:00 04/11/17 08:40 Nicoderm TOP 1 patch DAILY INGRID Administration Pantoprazole Sodium 40 mg 04/09/17 21:00 04/10/17 20:22 Protonix PO 40 mg QPM INGRID Administration Polyethylene Glycol 17 gm 04/09/17 09:00 04/11/17 08:42 Miralax PO Not Given DAILY INGRID Pravastatin Sodium 40 mg 04/09/17 09:00 04/11/17 08:41 Pravachol PO 40 mg DAILY INGRID Administration Senna 8.6 - 17.2 mg 04/11/17 09:00 04/11/17 08:42 Senokot PO Not Given DAILY [facility] Sodium Chloride 10 ml 04/08/17 22:00 04/11/17 13:34 Normal Saline Flush 0.9% IVP Not Given Q8HR INGRID - Lab Result Lab results reviewed: Yes Fish Bone Diagrams: 04/08/17 19:21 04/11/17 04:39 Other Lab Results: Laboratory Results WBC 6.1 x10^3/uL (4.8-10.8) 04/08/17 19:21 RBC 4.14 10^6/uL (4.20-5.40) L 04/08/17 19:21 Hgb 12.5 g/dL (12.0-16.0) 04/08/17 19:21 Hct 37.8 % (37.0-47.0) 04/08/17 19:21 MCV 91.4 fL (81.0-99.0) 04/08/17 19:21 MCH 30.1 pg (27.0-31.0) 04/08/17 19:21 MCHC 32.9 g/dL (32.0-36.0) 04/08/17 19:21 RDW 12.3 % (12.0-15.0) 04/08/17 19:21 Plt Count 269 10^3/uL (130-450) 04/08/17 19:21 MPV 7.4 fL (7.9-10.8) L 04/08/17 19:21 Neut # 2.9 10^3/uL (1.5-6.6) 04/08/17 19:21 Lymph # 2.3 10^3/uL (1.5-3.5) 04/08/17 19:21 [place] # 0.6 10^3/uL (0.0-1.0) 04/08/17 19:21 Eos # 0.2 10^3/uL (0.0-0.7) 04/08/17 19:21 Baso # 0.1 10^3/uL (0.0-0.1) 04/08/17 19:21 Absolute Nucleated RBC 0.00 x10^3/uL 04/08/17 19:21 Nucleated RBCs 0.0 /100WBC 04/08/17 19:21 Sodium 133 mmol/L (135-145) L 04/11/17 04:39 Potassium 4.6 mmol/L (3.5-5.0) 04/11/17 04:39 Chloride 99 mmol/L (101-111) L 04/11/17 04:39 Carbon Dioxide 24 mmol/L (21-32) 04/11/17 04:39 Anion Gap 10.0 (6-13) 04/11/17 04:39 BUN 12 mg/dL (6-20) 04/11/17 04:39 Creatinine 1.0 mg/dL (0.4-1.0) 04/11/17 04:39 Estimated GFR (MDRD) 53 (>89) L 04/11/17 04:39 Glucose 228 mg/dL (70-100) H 04/11/17 04:39 POC Whole Bld Glucose 283 mg/dL (70 - 100) H 04/11/17 11:27 Lactic Acid 0.9 mmol/L (0.5-2.2) 04/08/17 19:23 Calcium 9.1 mg/dL (8.5-10.3) 04/11/17 04:39 Magnesium 1.3 mg/dL (1.7-2.8) L 04/08/17 19:21 Total Bilirubin 0.6 mg/dL (0.2-1.0) 04/08/17 19:21 AST 16 IU/L (10-42) 04/08/17 19:21 ALT 17 IU/L (10-60) 04/08/17 19:21 Alkaline Phosphatase 82 IU/L (42-121) 04/08/17 19:21 Total Creatine Kinase 18 IU/L (22-269) L 04/08/17 19:21 CK-MB (CK-2) 1.3 ng/mL (0.6-6.3) 04/08/17 19:21 Troponin I < 0.04 ng/mL (<0.49) 04/08/17 19:21 Total Protein 6.0 g/dL (6.7-8.2) L 04/08/17 19:21 Albumin 3.3 g/dL (3.2-5.5) 04/08/17 19:21 Globulin 2.7 g/dL (2.1-4.2) 04/08/17 19:21 Albumin/Globulin Ratio 1.2 (1.0-2.2) 04/08/17 19:21 Lipase 26 U/L (22-51) 04/08/17 19:21 Cortisol PM Sample 14.3 ug/dL 04/09/17 08:03 Urine Color YELLOW 04/08/17 20:19 Urine Clarity HAZY (CLEAR) 04/08/17 20:19 Urine pH 6.5 PH (5.0-7.5) 04/08/17 20:19 Ur Specific [place] 1.010 (1.002-1.030) 04/08/17 20:19 Urine Protein NEGATIVE mg/dL (NEGATIVE) 04/08/17 20:19 Urine Glucose (UA) >=1000 mg/dL (NEGATIVE) H 04/08/17 20:19 Urine Ketones 40 mg/dL (NEGATIVE) H 04/08/17 20:19 Urine Occult Blood LARGE (NEGATIVE) H 04/08/17 20:19 Urine Nitrite NEGATIVE (NEGATIVE) 04/08/17 20:19 Urine Bilirubin NEGATIVE (NEGATIVE) 04/08/17 20:19 Urine Urobilinogen 0.2 (NORMAL) E.U./dL (NORMAL) 04/08/17 20:19 Ur Leukocyte Esterase NEGATIVE (NEGATIVE) 04/08/17 20:19 Urine RBC 11-25 /HPF (0-5) H 04/08/17 20:19 Urine WBC 11-25 /HPF (0-5) H 04/08/17 20:19 Ur Squamous Epith Cells MOD Squamous (<= Few) H 04/08/17 20:19 Urine Bacteria None Seen /HPF (None Seen) 04/08/17 20:19 Ur Microscopic Review INDICATED 04/08/17 20:19 Urine Culture Comments NOT INDICATED 04/08/17 20:19 Ur Random Chloride 88 04/09/17 01:25 Urine Creatinine 32.1 mg/dL 04/08/17 01:25 Urine Sodium 92.0 mmol/L 04/08/17 01:25 Urine Potassium 13.4 mmol/L 04/09/17 01:25 Ethyl Alcohol < 5.0 mg/dL 04/08/17 19:21 - EKG Results EKG Interpreted Independently: Yes - Diagnostic Imaging Results Diagnostic Imaging Results: Final report reviewed - Additional Planning Condition/Complexity: Guarded My Orders: My Active Orders 04/10/17 19:00 Metoprolol Tartrate [Lopressor] 25 mg PO BID Plan Discussed with:: Patient, Family Time Spent: 31-60 minutes Subjective - Subjective Patient Reports: Feeling Better (Patient feels better. She has not had anymore episodes of altered mental status today. She is eating well but is complaining of constipation. She denies any chest pain, fevers or chills.) Nursing Reports: No Complaints Objective Vital Signs: Vital Signs - 24 hr 04/10/17 04/10/17 04/11/17 15:46 20:14 00:08 Temperature 36.6 C 36.8 C 36.5 C Heart Rate Heart Rate [ 112 H 91 97 Brachial] Respiratory 18 16 18 Rate Blood Pressure Blood Pressure 126/66 126/65 135/69 H [Right Brachial artery] O2 Saturation 98 96 98 04/11/17 04/11/17 04/11/17 06:08 08:42 09:00 Temperature 36.6 C 36.1 C L Heart Rate Heart Rate [ 110 H 160 H Brachial] Respiratory 18 20 Rate Blood Pressure 151/75 H Blood Pressure 151/75 H 129/63 [Right Brachial artery] O2 Saturation 100 95 04/11/17 04/11/17 04/11/17 09:14 12:45 12:51 Temperature 36.1 C L Heart Rate 84 86 Heart Rate [ 87 Brachial] Respiratory 16 16 16 Rate Blood Pressure Blood Pressure 117/63 [Right Brachial artery] O2 Saturation 95 Oxygen O2 Source Room air I&O (Last 24 Hrs): Intake and Output Totals x24h 04/09/17 04/10/17 04/11/17 23:59 23:59 23:59 Intake Total 1355 340 Balance 1355 340 General: Alert, Oriented x3, Cooperative, No acute distress HEENT: Atraumatic, PERRLA, EOMI, Mucous membr. moist/pink Neck: Supple, No JVD, No thyromegaly, +2 carotid pulse wo bruit, No LAD Lymphatic: no adenopathy Neuro: Alert, Non Focal, CN 2-12 Grossly Intact, Oriented Times 3 Cardiovascular: Regular rate, Normal S1, Normal S2, No murmurs Respiratory: Chest non-tender, No respiratory distress, Breath sounds nml Abdomen: Normal bowel sounds, Soft, No tenderness, No hepatospenomegaly Extremities: No clubbing, No cyanosis, No edema, Normal pulses Skin: No rashes, No breakdown - Results Results: Laboratory Results WBC 6.1 x10^3/uL (4.8-10.8) 04/08/17 19:21 RBC 4.14 10^6/uL (4.20-5.40) L 04/08/17 19:21 Hgb 12.5 g/dL (12.0-16.0) 04/08/17 19:21 Hct 37.8 % (37.0-47.0) 04/08/17 19:21 MCV 91.4 fL (81.0-99.0) 04/08/17 19:21 MCH 30.1 pg (27.0-31.0) 04/08/17 19:21 MCHC 32.9 g/dL (32.0-36.0) 04/08/17 19:21 RDW 12.3 % (12.0-15.0) 04/08/17 19:21 Plt Count 269 10^3/uL (130-450) 04/08/17 19:21 MPV 7.4 fL (7.9-10.8) L 04/08/17 19:21 Neut # 2.9 10^3/uL (1.5-6.6) 04/08/17 19:21 Lymph # 2.3 10^3/uL (1.5-3.5) 04/08/17 19:21 [place] # 0.6 10^3/uL (0.0-1.0) 04/08/17 19:21 Eos # 0.2 10^3/uL (0.0-0.7) 04/08/17 19:21 Baso # 0.1 10^3/uL (0.0-0.1) 04/08/17 19:21 Absolute Nucleated RBC 0.00 x10^3/uL 04/08/17 19:21 Nucleated RBCs 0.0 /100WBC 04/08/17 19:21 Sodium 133 mmol/L (135-145) L 04/11/17 04:39 Potassium 4.6 mmol/L (3.5-5.0) 04/11/17 04:39 Chloride 99 mmol/L (101-111) L 04/11/17 04:39 Carbon Dioxide 24 mmol/L (21-32) 04/11/17 04:39 Anion Gap 10.0 (6-13) 04/11/17 04:39 BUN 12 mg/dL (6-20) 04/11/17 04:39 Creatinine 1.0 mg/dL (0.4-1.0) 04/11/17 04:39 Estimated GFR (MDRD) 53 (>89) L 04/11/17 04:39 Glucose 228 mg/dL (70-100) H 04/11/17 04:39 POC Whole Bld Glucose 283 mg/dL (70 - 100) H 04/11/17 11:27 Lactic Acid 0.9 mmol/L (0.5-2.2) 04/08/17 19:23 Calcium 9.1 mg/dL (8.5-10.3) 04/11/17 04:39 Magnesium 1.3 mg/dL (1.7-2.8) L 04/08/17 19:21 Total Bilirubin 0.6 mg/dL (0.2-1.0) 04/08/17 19:21 AST 16 IU/L (10-42) 04/08/17 19:21 ALT 17 IU/L (10-60) 04/08/17 19:21 Alkaline Phosphatase 82 IU/L (42-121) 04/08/17 19:21 Total Creatine Kinase 18 IU/L (22-269) L 04/08/17 19:21 CK-MB (CK-2) 1.3 ng/mL (0.6-6.3) 04/08/17 19:21 Troponin I < 0.04 ng/mL (<0.49) 04/08/17 19:21 Total Protein 6.0 g/dL (6.7-8.2) L 04/08/17 19:21 Albumin 3.3 g/dL (3.2-5.5) 04/08/17 19:21 Globulin 2.7 g/dL (2.1-4.2) 04/08/17 19:21 Albumin/Globulin Ratio 1.2 (1.0-2.2) 04/08/17 19:21 Lipase 26 U/L (22-51) 04/08/17 19:21 Cortisol PM Sample 14.3 ug/dL 04/09/17 08:03 Urine Color YELLOW 04/08/17 20:19 Urine Clarity HAZY (CLEAR) 04/08/17 20:19 Urine pH 6.5 PH (5.0-7.5) 04/08/17 20:19 Ur Specific [place] 1.010 (1.002-1.030) 04/08/17 20:19 Urine Protein NEGATIVE mg/dL (NEGATIVE) 04/08/17 20:19 Urine Glucose (UA) >=1000 mg/dL (NEGATIVE) H 04/08/17 20:19 Urine Ketones 40 mg/dL (NEGATIVE) H 04/08/17 20:19 Urine Occult Blood LARGE (NEGATIVE) H 04/08/17 20:19 Urine Nitrite NEGATIVE (NEGATIVE) 04/08/17 20:19 Urine Bilirubin NEGATIVE (NEGATIVE) 04/08/17 20:19 Urine Urobilinogen 0.2 (NORMAL) E.U./dL (NORMAL) 04/08/17 20:19 Ur Leukocyte Esterase NEGATIVE (NEGATIVE) 04/08/17 20:19 Urine RBC 11-25 /HPF (0-5) H 04/08/17 20:19 Urine WBC 11-25 /HPF (0-5) H 04/08/17 20:19 Ur Squamous Epith Cells MOD Squamous (<= Few) H 04/08/17 20:19 Urine Bacteria None Seen /HPF (None Seen) 04/08/17 20:19 Ur Microscopic Review INDICATED 04/08/17 20:19 Urine Culture Comments NOT INDICATED 04/08/17 20:19 Ur Random Chloride 88 04/09/17 01:25 Urine Creatinine 32.1 mg/dL 04/08/17 01:25 Urine Sodium 92.0 mmol/L 04/08/17 01:25 Urine Potassium 13.4 mmol/L 04/09/17 01:25 Ethyl Alcohol < 5.0 mg/dL 04/08/17 19:21
--- NOTE | 2017-04-11 14:35 | Discharge Plan ---
Discharge Plan Disposition: 01 Home, Self Care Condition: Fair Diet: Diabetic Activity Restrictions: Activity as Tolerated Shower Restrictions: No Driving Restrictions: No Assistance Devices: Walker Weight Bearing: Full Weight Additional Instructions or Follow Up instructions: You presented with altered mentation which we believe was most likely the result of transient ischemic attacks. It appears that these episodes have resolved. Your electrolytes are all now normal and your diabetes is better controlled. Your MRI did not show an acute stroke. I would like you to continue taking the aspirin, plavix and simvastatin to prevent further TIAs. You also need to follow up with your PCP and see a neurologist in the near future especially if these symptoms return. Follow up with your PCP for your diabetes. You have completed your course of antibiotics for your UTI. Please quit smoking. Follow-Up Care: [facility] - Diabetes Ed No Smoking: If you smoke, Please STOP! Call for help.
--- NOTE | 2017-04-11 14:50 | DISCHARGE SUMMARY ---
Discharge Summary Admit Date: 04/09/17 Discharge Date: 04/11/17 Discharging Provider: Parvez Narvaez MD Primary Care Provider: Guille Blanco MD Code Status: Attempt Resuscitation Condition at Discharge: Fair Discharge Disposition: 01 Home, Self Care - DIAGNOSES Admission Diagnoses: 1. Altered mental status 2. Diabetes 3. Tachycardia with run of V-tach 4. Coronary Artery Disease 5. Peripheral Vascular Disease 6. History of Renal Cell Carcinoma s/p nephrectomy and 7. History Stromal Sarcoma of stomach. 8. UTI 9. DVT prophylaxis Discharge Diagnoses with Status of Each Condition: 1. Transient Ischemic Attack 2. Diabetes 3. Tachycardia with run of V-tach 4. Coronary Artery Disease 5. Peripheral Vascular Disease 6. History of Renal Cell Carcinoma s/p nephrectomy and 7. History Stromal Sarcoma of stomach. 8. UTI 9. DVT prophylaxis - HPI History of Present Illness: 82yoF with CAD s/p stent, PVD, s/p CEA, COPD, current smoker, hypothyroid, h/o RCC s/p nephrectomy, h/o stromal sarcoma of the stomach, tobacco use. Pt lives in [place] and is here visiting her daughter for the past 2 months. Per family, pt has not been herself most of the time she has been up here. She was admitted 04/03- with new diagnosis of DM (A1C=10), UTI and hyponatremia likely due to polydipsia. Head and Chest CTs were negative, cortisol was normal, as were TSH and lipid levels. She was found to have a UTI and placed initially on Ceftriaxone and discharged wt keflex to complete a 10day course of abx, as well as being placed on free water restriction, which family has been following. Initially pt did well at home and was getting stronger each day. However today, family reports that this afternoon she started getting more lethargic, then became unresponsive. She was staring out the window, eyes open, but would not respond to questions In ED her sodium level corrects to 129, trop neg, CXR neg, Head CT with chronic changes, no acute findings. Afebrile, hypertensive, intermittent tachycardia. he had 9 beat run of Vtach, mag low at 1.3, replaced IV with no further Vtach. UA with ketones and >1000glc and blood, LE/nitr (-). Mental status has improved somewhat to where she is now answering some questions and following simple commands. - HOSPITAL COURSE Hospital Course: Patient had another episode of staring off and being unresponsive while she was hospitalized. The hospitalist did contact [facility] who suggested an MRI and if the symptoms continued then prophylactic seizure medication should be started and she should follow up for a EEG with neurology. The patient had no further episodes of staring off and being unresponsive. Her MRI did not show any acute changes. She did not have any further arrhythmias on telemetry. Her electrolytes remained stable. The patient was most likely having TIAs given her risk factors and quick resolution of the symptoms. She did not have any findings on MRI to suggest a focus for seizures or new stroke. The patient was continued on plavix, aspirin and statin to help prevent further episodes. She was not found to be in a fib and therefore we did not start anticoagulation. The patient was recently diagnosed with diabetes and will continue on metformin at discharge. She will need to follow up with her PCP for adjustment of her diabetic medication. She will also need to follow up with neurology for further assessment. Patient completed her course if antibiotics for UTI while she was hospitalized and therefore will not need any further antibiotics at home. She was told to continue to a fluid restriction. She was in stable condition at the time of discharge. - ALLERGIES Allergies/Adverse Reactions: Allergies Allergy/AdvReac Type Severity Reaction Status Date / Time adhesive tape Allergy Rash Verified 04/08/17 18:56 Sulfa (Sulfonamide Allergy Unknown Verified 04/08/17 18:56 Antibiotics) - MEDICATIONS Home Medications: Ambulatory Orders Medication Instructions Recorded Confirmed Aspirin [Adult Low Dose Aspirin EC] 81 mg PO DAILY 04/03/17 04/08/17 Clopidogrel [Plavix] 75 mg PO DAILY 04/03/17 04/08/17 Hydrocodone/Acetaminophen [Vicodin 1 each PO Q6HR 04/03/17 04/08/17 5-300 mg Tablet] LORazepam [Ativan] 0.5 mg DAILY 04/03/17 04/08/17 Metoprolol Tartrate 25 mg PO BID 04/03/17 04/08/17 Ondansetron HCl [Zofran] 4 mg PO Q8HR 04/03/17 04/08/17 Pantoprazole [Protonix] 40 mg PO DAILY 04/03/17 04/08/17 Simvastatin 20 mg PO DAILY 04/03/17 04/08/17 Tiotropium [place] [Spiriva] 18 mcg IH DAILY 04/03/17 04/08/17 Levothyroxine [Synthroid] 75 mcg PO QDAC 04/04/17 04/08/17 Blood Sugar Diagnostic [Glucometer 1 each MC TID #90 strip 04/05/17 04/08/17 Strips] Blood-Glucose Meter [Glucometer] 1 each MC TID #1 each 04/05/17 04/08/17 Metformin HCl [Metformin HCl ER] 500 mg PO BID #60 tab.er.24 04/05/17 04/08/17 Nicotine 21 mg Patch [Nicoderm] 1 each TOP Q24H #30 patch 04/05/17 04/08/17 Cholecalciferol (Vitamin D3) 2,000 unit PO DAILY 04/10/17 04/10/17 [Vitamin D3] Glucosamine Sulfate Dipot Chlr 1,000 mg PO DAILY 04/10/17 04/10/17 [Glucosamine Sulfate] Multivitamin [Multiple Vitamins] 1 tab PO DAILY 04/10/17 04/10/17 - PHYSICAL EXAM AT DISCHARGE General Appearance: positive: No acute distress, Alert Eyes Bilateral: positive: Normal inspection, PERRL, EOMI, No lid inflammation, Conjunctivae nml, No scleral icterus ENT: positive: ENT inspection nml, Pharynx nml, No signs of dehydration. negative: Purulent nasal drainage, Pharyngeal erythema, Oral lesions Neck: positive: Nml inspection, Thyroid nml, No JVD, Trachea midline. negative : Thyromegaly, Lymphadenopathy (R), Lymphadenopathy (L), Carotid bruit, Tracheal deviation Respiratory: positive: Chest non-tender, No respiratory distress, Breath sounds nml. negative: Wheezes, Rales, Rhonchi Cardiovascular: positive: Regular rate & rhythm, No murmur, No gallop Peripheral Pulses: positive: 2+ Abdomen: positive: Non-tender, No organomegaly, Nml bowel sounds, No distention. negative: Guarding, Rebound, Hepatomegaly Skin: positive: Color nml, No rash, Warm. negative: Cyanosis, Pallor Extremities: positive: Non-tender, Full ROM, Nml appearance, No pedal edema Neurologic/Psychiatric: positive: Oriented x3, CN's nml (2-12), Motor nml, Sensation nml, Mood/affect nml - LABS Result Diagrams: 04/08/17 19:21 04/11/17 04:39 Other Lab Results: Laboratory Results WBC 6.1 x10^3/uL (4.8-10.8) 04/08/17 19:21 RBC 4.14 10^6/uL (4.20-5.40) L 04/08/17 19:21 Hgb 12.5 g/dL (12.0-16.0) 04/08/17 19:21 Hct 37.8 % (37.0-47.0) 04/08/17 19:21 MCV 91.4 fL (81.0-99.0) 04/08/17 19:21 MCH 30.1 pg (27.0-31.0) 04/08/17 19:21 MCHC 32.9 g/dL (32.0-36.0) 04/08/17 19:21 RDW 12.3 % (12.0-15.0) 04/08/17 19:21 Plt Count 269 10^3/uL (130-450) 04/08/17 19:21 MPV 7.4 fL (7.9-10.8) L 04/08/17 19:21 Neut # 2.9 10^3/uL (1.5-6.6) 04/08/17 19:21 Lymph # 2.3 10^3/uL (1.5-3.5) 04/08/17 19:21 [place] # 0.6 10^3/uL (0.0-1.0) 04/08/17 19:21 Eos # 0.2 10^3/uL (0.0-0.7) 04/08/17 19:21 Baso # 0.1 10^3/uL (0.0-0.1) 04/08/17 19:21 Absolute Nucleated RBC 0.00 x10^3/uL 04/08/17 19:21 Nucleated RBCs 0.0 /100WBC 04/08/17 19:21 Sodium 133 mmol/L (135-145) L 04/11/17 04:39 Potassium 4.6 mmol/L (3.5-5.0) 04/11/17 04:39 Chloride 99 mmol/L (101-111) L 04/11/17 04:39 Carbon Dioxide 24 mmol/L (21-32) 04/11/17 04:39 Anion Gap 10.0 (6-13) 04/11/17 04:39 BUN 12 mg/dL (6-20) 04/11/17 04:39 Creatinine 1.0 mg/dL (0.4-1.0) 04/11/17 04:39 Estimated GFR (MDRD) 53 (>89) L 04/11/17 04:39 Glucose 228 mg/dL (70-100) H 04/11/17 04:39 POC Whole Bld Glucose 283 mg/dL (70 - 100) H 04/11/17 11:27 Lactic Acid 0.9 mmol/L (0.5-2.2) 04/08/17 19:23 Calcium 9.1 mg/dL (8.5-10.3) 04/11/17 04:39 Magnesium 1.3 mg/dL (1.7-2.8) L 04/08/17 19:21 Total Bilirubin 0.6 mg/dL (0.2-1.0) 04/08/17 19:21 AST 16 IU/L (10-42) 04/08/17 19:21 ALT 17 IU/L (10-60) 04/08/17 19:21 Alkaline Phosphatase 82 IU/L (42-121) 04/08/17 19:21 Total Creatine Kinase 18 IU/L (22-269) L 04/08/17 19:21 CK-MB (CK-2) 1.3 ng/mL (0.6-6.3) 04/08/17 19:21 Troponin I < 0.04 ng/mL (<0.49) 04/08/17 19:21 Total Protein 6.0 g/dL (6.7-8.2) L 04/08/17 19:21 Albumin 3.3 g/dL (3.2-5.5) 04/08/17 19:21 Globulin 2.7 g/dL (2.1-4.2) 04/08/17 19:21 Albumin/Globulin Ratio 1.2 (1.0-2.2) 04/08/17 19:21 Lipase 26 U/L (22-51) 04/08/17 19:21 Cortisol PM Sample 14.3 ug/dL 04/09/17 08:03 Urine Color YELLOW 04/08/17 20:19 Urine Clarity HAZY (CLEAR) 04/08/17 20:19 Urine pH 6.5 PH (5.0-7.5) 04/08/17 20:19 Ur Specific [place] 1.010 (1.002-1.030) 04/08/17 20:19 Urine Protein NEGATIVE mg/dL (NEGATIVE) 04/08/17 20:19 Urine Glucose (UA) >=1000 mg/dL (NEGATIVE) H 04/08/17 20:19 Urine Ketones 40 mg/dL (NEGATIVE) H 04/08/17 20:19 Urine Occult Blood LARGE (NEGATIVE) H 04/08/17 20:19 Urine Nitrite NEGATIVE (NEGATIVE) 04/08/17 20:19 Urine Bilirubin NEGATIVE (NEGATIVE) 04/08/17 20:19 Urine Urobilinogen 0.2 (NORMAL) E.U./dL (NORMAL) 04/08/17 20:19 Ur Leukocyte Esterase NEGATIVE (NEGATIVE) 04/08/17 20:19 Urine RBC 11-25 /HPF (0-5) H 04/08/17 20:19 Urine WBC 11-25 /HPF (0-5) H 04/08/17 20:19 Ur Squamous Epith Cells MOD Squamous (<= Few) H 04/08/17 20:19 Urine Bacteria None Seen /HPF (None Seen) 04/08/17 20:19 Ur Microscopic Review INDICATED 04/08/17 20:19 Urine Culture Comments NOT INDICATED 04/08/17 20:19 Ur Random Chloride 88 04/09/17 01:25 Urine Creatinine 32.1 mg/dL 04/08/17 01:25 Urine Sodium 92.0 mmol/L 04/08/17 01:25 Urine Potassium 13.4 mmol/L 04/09/17 01:25 Ethyl Alcohol < 5.0 mg/dL 04/08/17 19:21 - DIAGNOSTIC IMAGING Diagnostic Imaging Results: Final report reviewed Diagnostic Imaging Results Comments: CT head Mild generalized atrophy and chronic microvascular angiopathy No acute intracranial abnormality MRI Brain: No evidence for large intracranial space occupying mass or acute hemorrhage or stoke. Diffuse atrophy and extensive white matter disease are present consistent with aging and chronic small vessel ischemic disease. - FOLLOW UP Follow Up: Patient needs to follow up with PCP for diabetes management and needs referral to Neurology for further assessment of TIA like episodes. - TIME SPENT Time Spent in Discharge (Minutes): 50
[2017-04-11 15:51] VITALS: BP 142/69
== END 2017-04-11 16:15 | disposition home or self-care (01) | DRG 69 ==
LOC: EDUNIT# → ED 18:47 → OBS 21:47 → OBSVTOIN 04-09 18:16 → MS3 04-09 20:33
PROVIDERS: ADMIT Internal Medicine; ATTEND Internal Medicine
DX: R41.0 Disorientation, unspecified (principal); G45.9 Transient cerebral ischemic attack, unspecified; I47.2 Ventricular tachycardia; E87.1 Hypo-osmolality and hyponatremia; N39.0 Urinary tract infection, site not specified; E11.65 Type 2 diabetes mellitus with hyperglycemia; I25.10 Atherosclerotic heart disease of native coronary artery without angina pectoris; E86.0 Dehydration; E83.42 Hypomagnesemia; I73.9 Peripheral vascular disease, unspecified; J44.9 Chronic obstructive pulmonary disease, unspecified; E03.9 Hypothyroidism, unspecified; Z86.73 Personal history of transient ischemic attack (TIA), and cerebral infarction without residual deficits; F17.200 Nicotine dependence, unspecified, uncomplicated; Z85.528 Personal history of other malignant neoplasm of kidney; Z85.028 Personal history of other malignant neoplasm of stomach; Z90.5 Acquired absence of kidney; Z95.5 Presence of coronary angioplasty implant and graft; Z79.02 Long term (current) use of antithrombotics/antiplatelets; Z79.82 Long term (current) use of aspirin; Z79.84 Long term (current) use of oral hypoglycemic drugs
CPT/HCPCS: 36415; 51701; 70450; 70551; 71010; 80048; 80053; 80320; 81001; 81003; 82436; 82533; 82550; 82553; 82570; 83605; 83690; 83735; 83930; 83935; 84133; 84300; 84484; 85025; 87040; 87086; 93005; 94640; 96361; 96365; 96367; 96375; 99284; 99285